=== PATIENT | female | born 1995 | race Caucasian/White ===

== ENCOUNTER 2016-06-29 18:13 | Emergency (ER) | payer OTHER ==
[~2016-06-29] VITALS: Ht 154.9 cm; Wt 46.7 kg
[~2016-06-29 18:13] MED LIST: ACETAMINOPHEN500 MG PO; CIPRO500 MG PO; CONCERTA36 MG PO; FOCALIN5 MG PO; KEPPRA500 MG PO; KEPPRA750 MG PO; LEVEMIR100 UNIT/2 SC; MOTRIN600 MG PO; NEUTRA-PHOS,1 PACKET PO; NOVOLIN N100 UNITS/; NOVOLOG 10100 UNITS/; NOVOLOG 10100 UNITS/ SC; TOPAMAX25 MG PO; ZOFRAN ODT4 MG PO; ZOFRAN4 MG PO
[2016-06-29 18:37] LABS: POINT-OF-CARE METER ID UU13113778; POINT-OF-CARE USER ID NUTJLF39
[2016-06-29 19:09] LABS: HEMATOCRIT 48.9 % (36.0-46.0); MCH 29.4 PG (29.0-34.0); MCHC 33.9 G/DL (30.0-36.0); MCV 86.7 FL (83-99); MEAN PLAT.VOLUME 9.2 uM^3 (9.5-12.4); PLATELET COUNT 384 K/uL (156-360); RBC DIS.WIDTH-CV 13.3 % (11.8-14.6); RBC DIS.WIDTH-SD 41.7 % (39-53); RED BLOOD COUNT 5.64 M/uL (3.80-5.20); WHITE BLOOD COUNT 17.3 K/uL (4.1-10.2)
[2016-06-29 19:17] LABS: CHLORIDE 113 mEq/L (99-109); POTASSIUM 4.4 mEq/L (3.7-5.4); SODIUM 140 mEq/L (136-147)
[2016-06-29 19:19] LABS: GLUCOSE 312 mg/dL (70-99)
[2016-06-29 19:20] LABS: ANION GAP 21 MEQ/L (2-14)
[2016-06-29 19:21] LABS: TOTAL BILIRUBIN 0.4 mg/dL (0.0-1.0)
[2016-06-29 19:23] LABS: ALKALINE PHOSPHATASE 109 IU/L (3-129); GFR ESTIMATE (CALCULATED) > 59 mL/min/
[2016-06-29 19:24] LABS: UREA NITROGEN (BUN) 10 mg/dL (9-23)
[2016-06-29 19:34] LABS: QUANTITATIVE HCG < 4.0 MIU/ML
[2016-06-29 21:38] LABS: VENOUS PCO2 27 mm Hg (41-51)
[2016-06-29 23:28] LABS: POINT-OF-CARE METER ID UU13113702
[2016-06-29 23:34] LABS: INFLUENZA A VIRAL ANTIGEN NEGATIVE; INFLUENZA B VIRAL ANTIGEN NEGATIVE
[2016-06-30 00:54] LABS: POINT-OF-CARE METER ID UU13113702
[2016-06-30 01:48] LABS: POINT-OF-CARE METER ID UU13113702
[2016-06-30 02:31] LABS: ADD MIUA? YES; BILIRUBIN NEGATIVE; BLOOD SMALL; COLOR STRAW ((YELLOW)); GLUCOSE (STRIP) >=500; KETONES 80; LEUKOCYTES NEGATIVE; NITRITE NEGATIVE; PROTEIN (STRIP) 100; SPECIFIC GRAVITY 1.012 (1.000-1.030); UROBILINOGEN 0.2 MG/DL (0.2-1.0)
[2016-06-30 02:34] LABS: BACTERIA RARE /HPF; EPITHELIAL CELLS RARE /HPF; MUCUS TRACE /LPF; RED BLOOD CELLS 0-5 /HPF (0-5); UCUL ADDED? NO; WHITE BLOOD CELLS 0-5 /HPF (0-5)
[2016-06-30 03:04] LABS: POINT-OF-CARE METER ID UU13113702
[2016-06-30 03:26] VITALS: BP 110/82
[2016-06-30 03:30] LABS: POINT-OF-CARE METER ID UU13113702
== END 2016-06-30 03:30 | disposition short-term general hospital (02) ==
LOC: EME 18:13
PROVIDERS: Emergency Medicine; Physician Assistant
DX: E13.10 Other specified diabetes mellitus with ketoacidosis without coma (principal); R11.2 Nausea with vomiting, unspecified; M54.9 Dorsalgia, unspecified; Z79.4 Long term (current) use of insulin
CPT/HCPCS: 71020; 80053; 81003; 82010; 82803; 82948; 83605; 84702; 85027; 87502; 99281; 99285; J1815; J2405; J3010; J7030; J7050; J7070

== ENCOUNTER 2016-11-19 21:53 | Inpatient (IN) | payer OTHER ==
[~2016-11-19] VITALS: Ht 154.9 cm; Wt 53.4 kg
[2016-11-19 22:53] LABS: HEMATOCRIT 44.9 % (36.0-46.0); MCH 29.4 PG (29.0-34.0); MCHC 33.9 G/DL (30.0-36.0); MCV 86.8 FL (83-99); PLATELET COUNT 448 K/uL (156-360); RBC DIS.WIDTH-CV 13.2 % (11.8-14.6); RBC DIS.WIDTH-SD 41.8 % (39-53); RED BLOOD COUNT 5.17 M/uL (3.80-5.20); WHITE BLOOD COUNT 8.8 K/uL (4.1-10.2)
[2016-11-19 22:54] LABS: ADD MIUA? YES; BILIRUBIN NEGATIVE; BLOOD NEGATIVE; COLOR YELLOW ((YELLOW)); GLUCOSE (STRIP) >=500; KETONES 80; LEUKOCYTES MODERATE; NITRITE NEGATIVE; PROTEIN (STRIP) NEGATIVE; SPECIFIC GRAVITY 1.035 (1.000-1.030); UROBILINOGEN 0.2 MG/DL (0.2-1.0)
[2016-11-19 23:03] LABS: CHLORIDE 102 mEq/L (99-109); POTASSIUM 4.1 mEq/L (3.7-5.4); SODIUM 132 mEq/L (136-147)
[2016-11-19 23:07] LABS: ANION GAP 19 MEQ/L (2-14); TOTAL BILIRUBIN 0.2 mg/dL (0.0-1.0)
[2016-11-19 23:09] LABS: ALKALINE PHOSPHATASE 114 IU/L (3-129); GFR ESTIMATE (CALCULATED) > 59 mL/min/
[2016-11-19 23:10] LABS: GLUCOSE 483 mg/dL (70-99); UREA NITROGEN (BUN) 8 mg/dL (9-23)
[2016-11-19 23:15] LABS: BACTERIA RARE /HPF; EPITHELIAL CELLS 1+ /HPF; MUCUS TRACE /LPF; RED BLOOD CELLS 15-20 /HPF (0-5); UCUL ADDED? NO; WHITE BLOOD CELLS 30-40 /HPF (0-5)
[2016-11-19 23:18] LABS: QUANTITATIVE HCG < 4.0 MIU/ML
[2016-11-19 23:38] LABS: CARBON DIOXIDE (BICARBONATE) 11.6 MEQ/L (20-31)
[2016-11-20] VITALS (13 sets, daily range): BP systolic 98–108; BP diastolic 59–79
[2016-11-20 00:25] LABS: CHLORIDE 100 mEq/L (99-109); POTASSIUM 4.6 mEq/L (3.7-5.4); SODIUM 127 mEq/L (136-147)
[2016-11-20 00:29] LABS: ANION GAP 18 MEQ/L (2-14)
[2016-11-20 00:31] LABS: GFR ESTIMATE (CALCULATED) > 59 mL/min/
[2016-11-20 00:32] LABS: GLUCOSE 493 mg/dL (70-99); UREA NITROGEN (BUN) 8 mg/dL (9-23)
[2016-11-20 01:21] LABS: POINT-OF-CARE METER ID UU13113747
[2016-11-20 02:55] LABS: METH RESISTANT S AUREUS PCR NEGATIVE (NEGATIVE)
[2016-11-20 03:11] LABS: PROBE CHECK PASS; SPECIMEN PROCESSING CONTROL PASS
[2016-11-20 04:31] LABS: CHLORIDE 110 mEq/L (99-109); SODIUM 133 mEq/L (136-147)
[2016-11-20 04:32] LABS: POTASSIUM 3.1 mEq/L (3.7-5.4)
[2016-11-20 04:33] LABS: GLUCOSE 277 mg/dL (70-99)
[2016-11-20 04:34] LABS: ANION GAP 14 MEQ/L (2-14)
[2016-11-20 04:36] LABS: GFR ESTIMATE (CALCULATED) > 59 mL/min/
[2016-11-20 04:37] LABS: UREA NITROGEN (BUN) 7 mg/dL (9-23)
[2016-11-20 06:23] LABS: HEMATOCRIT 36.9 % (36.0-46.0); MCH 29.3 PG (29.0-34.0); MCHC 33.9 G/DL (30.0-36.0); MCV 86.6 FL (83-99); MEAN PLAT.VOLUME 9.1 uM^3 (9.5-12.4); PLATELET COUNT 369 K/uL (156-360); RBC DIS.WIDTH-CV 13.4 % (11.8-14.6); RBC DIS.WIDTH-SD 42.1 % (39-53); RED BLOOD COUNT 4.26 M/uL (3.80-5.20); WHITE BLOOD COUNT 8.7 K/uL (4.1-10.2)
[2016-11-20 06:31] LABS: ANION GAP 11 MEQ/L (2-14); CHLORIDE 112 MEQ/L (99-109); GFR ESTIMATE (CALCULATED) > 59 mL/min/; GLUCOSE 233 mg/dL (70-99); MAGNESIUM 1.6 mg/dl (1.3-2.7); POTASSIUM 3.2 MEQ/L (3.7-5.4); SAMPLE HEMOLYSIS CHECK 0; SAMPLE ICTERIC CHECK 0; SAMPLE LIPEMIA CHECK 0; SODIUM 135 MEQ/L (136-147); UREA NITROGEN (BUN) 7 mg/dL (9-23)
[2016-11-20 08:06] LABS: Estimated Average Glucose 303 mg/dL (70-123); HEMOGLOBIN A1c (GLYCOHEMOGLOB) 12.2 % HGB (Below 5.7)
[2016-11-20 08:36] LABS: ANION GAP 7 MEQ/L (2-14); CHLORIDE 117 MEQ/L (99-109); SAMPLE HEMOLYSIS CHECK 0; SAMPLE ICTERIC CHECK 0; SAMPLE LIPEMIA CHECK 0; SODIUM 139 MEQ/L (136-147)
[2016-11-20 08:39] LABS: POTASSIUM 4.4 MEQ/L (3.7-5.4)
[2016-11-20 08:42] LABS: GFR ESTIMATE (CALCULATED) > 59 mL/min/; GLUCOSE 187 mg/dL (70-99); UREA NITROGEN (BUN) 6 mg/dL (9-23)
[2016-11-20 10:51] LABS: ANION GAP 6 MEQ/L (2-14); CHLORIDE 115 MEQ/L (99-109); GFR ESTIMATE (CALCULATED) > 59 mL/min/; GLUCOSE 144 mg/dL (70-99); MAGNESIUM 1.6 mg/dl (1.3-2.7); POTASSIUM 3.8 MEQ/L (3.7-5.4); SAMPLE HEMOLYSIS CHECK 0; SAMPLE ICTERIC CHECK 0; SAMPLE LIPEMIA CHECK 0; SODIUM 137 MEQ/L (136-147); UREA NITROGEN (BUN) 6 mg/dL (9-23)
[2016-11-20 14:26] LABS: ANION GAP 7 MEQ/L (2-14); CHLORIDE 114 MEQ/L (99-109); GFR ESTIMATE (CALCULATED) > 59 mL/min/; GLUCOSE 133 mg/dL (70-99); POTASSIUM 4.2 MEQ/L (3.7-5.4); SAMPLE HEMOLYSIS CHECK 0; SAMPLE ICTERIC CHECK 0; SAMPLE LIPEMIA CHECK 0; SODIUM 136 MEQ/L (136-147); UREA NITROGEN (BUN) 5 mg/dL (9-23)
[2016-11-20 14:32] LABS: MAGNESIUM 3.3 mg/dl (1.3-2.7)
[2016-11-20 19:23] LABS: CHLORIDE 109 mEq/L (99-109); POTASSIUM 4.3 mEq/L (3.7-5.4); SODIUM 134 mEq/L (136-147)
[2016-11-20 19:24] LABS: MAGNESIUM 1.9 mg/dL (1.3-2.7)
[2016-11-20 19:26] LABS: ANION GAP 10 MEQ/L (2-14)
[2016-11-20 19:27] LABS: GLUCOSE 345 mg/dL (70-99)
[2016-11-20 19:29] LABS: GFR ESTIMATE (CALCULATED) > 59 mL/min/
[2016-11-20 19:30] LABS: UREA NITROGEN (BUN) 4 mg/dL (9-23)
[2016-11-20 21:10] LABS: POINT-OF-CARE METER ID UU13113781
[2016-11-21 00:04] VITALS: BP 108/70
[2016-11-21 00:48] LABS: CHLORIDE 106 mEq/L (99-109); POTASSIUM 4.1 mEq/L (3.7-5.4); SODIUM 134 mEq/L (136-147)
[2016-11-21 00:50] LABS: GLUCOSE 350 mg/dL (70-99)
[2016-11-21 00:51] LABS: ANION GAP 10 MEQ/L (2-14)
[2016-11-21 00:54] LABS: GFR ESTIMATE (CALCULATED) > 59 mL/min/
[2016-11-21 00:55] LABS: UREA NITROGEN (BUN) 7 mg/dL (9-23)
[2016-11-21 00:57] LABS: MAGNESIUM 1.6 mg/dL (1.3-2.7)
[2016-11-21 02:32] LABS: POINT-OF-CARE METER ID UU13113781
[2016-11-21 03:00] VITALS: BP 103/75
[2016-11-21 03:47] LABS: CHLORIDE 109 mEq/L (99-109); POTASSIUM 3.5 mEq/L (3.7-5.4); SODIUM 137 mEq/L (136-147)
[2016-11-21 03:48] LABS: MAGNESIUM 1.8 mg/dL (1.3-2.7)
[2016-11-21 03:49] LABS: GLUCOSE 215 mg/dL (70-99)
[2016-11-21 03:50] LABS: ANION GAP 7 MEQ/L (2-14)
[2016-11-21 03:53] LABS: GFR ESTIMATE (CALCULATED) > 59 mL/min/
[2016-11-21 03:54] LABS: UREA NITROGEN (BUN) 7 mg/dL (9-23)
[2016-11-21 07:31] VITALS: BP 102/68
[2016-11-21 09:25] LABS: HEMATOCRIT 40.1 % (36.0-46.0); MCH 29.7 PG (29.0-34.0); MCHC 35.2 G/DL (30.0-36.0); MCV 84.6 FL (83-99); MEAN PLAT.VOLUME 9.4 uM^3 (9.5-12.4); PLATELET COUNT 379 K/uL (156-360); RBC DIS.WIDTH-CV 13.8 % (11.8-14.6); RBC DIS.WIDTH-SD 42.6 % (39-53); RED BLOOD COUNT 4.74 M/uL (3.80-5.20); WHITE BLOOD COUNT 7.8 K/uL (4.1-10.2)
[2016-11-21 10:05] LABS: POINT-OF-CARE METER ID UU14174216
[2016-11-21 10:50] LABS: ANION GAP 13 MEQ/L (2-14); CHLORIDE 109 MEQ/L (99-109); GFR ESTIMATE (CALCULATED) > 59 mL/min/; POTASSIUM 3.9 MEQ/L (3.7-5.4); SAMPLE HEMOLYSIS CHECK 0; SAMPLE ICTERIC CHECK 0; SAMPLE LIPEMIA CHECK 0; SODIUM 143 MEQ/L (136-147); UREA NITROGEN (BUN) 6 mg/dL (9-23)
[2016-11-21 10:51] LABS: GLUCOSE 73 mg/dL (70-99); MAGNESIUM 1.9 mg/dl (1.3-2.7)
[2016-11-21 11:10] VITALS: BP 117/69
[2016-11-21 11:42] LABS: ANION GAP 8 MEQ/L (2-14); CHLORIDE 106 MEQ/L (99-109); GFR ESTIMATE (CALCULATED) > 59 mL/min/; MAGNESIUM 1.8 mg/dl (1.3-2.7); POTASSIUM 3.4 MEQ/L (3.7-5.4); SAMPLE HEMOLYSIS CHECK 0; SAMPLE ICTERIC CHECK 0; SAMPLE LIPEMIA CHECK 0; SODIUM 137 MEQ/L (136-147); UREA NITROGEN (BUN) 6 mg/dL (9-23)
[2016-11-21 11:46] LABS: GLUCOSE 274 mg/dL (70-99)
[2016-11-21 14:54] LABS: POINT-OF-CARE USER ID ENVKC36
== END 2016-11-21 16:32 | disposition home or self-care (01) | DRG 638 ==
LOC: EME 21:53 → EDOF 11-20 00:11 → 4EAST 11-20 00:11 → 4WEST 11-20 01:30 → 4EAST 11-20 01:44 → 4WEST 11-20 15:36 → 4EAST 11-20 19:50
PROVIDERS: Emergency Medicine; Internal Medicine; Internal Medicine Nephrology
DX: E10.10 Type 1 diabetes mellitus with ketoacidosis without coma (principal); N39.0 Urinary tract infection, site not specified; G80.9 Cerebral palsy, unspecified; G40.909 Epilepsy, unspecified, not intractable, without status epilepticus; G43.909 Migraine, unspecified, not intractable, without status migrainosus; M54.9 Dorsalgia, unspecified; F90.9 Attention-deficit hyperactivity disorder, unspecified type; F17.200 Nicotine dependence, unspecified, uncomplicated
CPT/HCPCS: 80048; 80048 91; 80053; 81003; 82803; 82948; 83036; 83605; 83735; 84100; 84702; 85027; 87040; 87641; 99281; 99285; J0696; J1815; J3475; J7030; J7040; J7050; J7120; S0028

== ENCOUNTER 2016-11-28 14:20 | Inpatient (IN) | payer OTHER ==
[~2016-11-28] VITALS: Ht 154.9 cm; Wt 51.0 kg
[2016-11-28 15:26] LABS: POINT-OF-CARE METER ID UU13113800
[2016-11-28 15:43] LABS: CHLORIDE 111 mEq/L (99-109); POTASSIUM 4.2 mEq/L (3.7-5.4); SODIUM 137 mEq/L (136-147)
[2016-11-28 15:44] LABS: GLUCOSE 304 mg/dL (70-99)
[2016-11-28 15:46] LABS: VENOUS PCO2 26 mm Hg (41-51)
[2016-11-28 15:48] LABS: GFR ESTIMATE (CALCULATED) > 59 mL/min/
[2016-11-28 15:49] LABS: UREA NITROGEN (BUN) 12 mg/dL (9-23)
[2016-11-28 15:57] LABS: QUANTITATIVE HCG < 4.0 MIU/ML
[2016-11-28 16:21] LABS: HEMATOCRIT 48.3 % (36.0-46.0); MCH 29.1 PG (29.0-34.0); MCHC 31.9 G/DL (30.0-36.0); MCV 91.1 FL (83-99); PLATELET COUNT 437 K/uL (156-360); RBC DIS.WIDTH-CV 13.8 % (11.8-14.6); RBC DIS.WIDTH-SD 45.6 % (39-53); WHITE BLOOD COUNT 16.2 K/uL (4.1-10.2)
[2016-11-28] MEDS ORDERED: KEPPRA750 MG PO (16:39)
[2016-11-28] MEDS ORDERED: BASAGLAR K100 UNIT/1 SC (16:39)
[2016-11-28] MEDS ORDERED: NOVOLOG PE100 UNITS/ SC (16:40)
[2016-11-28 17:15] LABS: Estimated Average Glucose 303 mg/dL (70-123); HEMOGLOBIN A1c (GLYCOHEMOGLOB) 12.2 % HGB (Below 5.7)
[2016-11-28 17:46] LABS: POINT-OF-CARE METER ID UU14100415
[2016-11-28 18:51] LABS: POINT-OF-CARE METER ID UU14100415
[2016-11-28 19:00] LABS: ADD MIUA? YES; BILIRUBIN NEGATIVE; BLOOD NEGATIVE; COLOR STRAW ((YELLOW)); GLUCOSE (STRIP) >=500; KETONES 80; LEUKOCYTES NEGATIVE; NITRITE NEGATIVE; PROTEIN (STRIP) 100; SPECIFIC GRAVITY 1.014 (1.000-1.030); UROBILINOGEN 0.2 MG/DL (0.2-1.0)
[2016-11-28 19:23] LABS: BACTERIA 1+ /HPF; EPITHELIAL CELLS 1+ /HPF; GRANULAR CASTS 0-5 /LPF; MUCUS TRACE /LPF; RED BLOOD CELLS 0-5 /HPF (0-5); WHITE BLOOD CELLS 0-5 /HPF (0-5)
[2016-11-28 19:25] VITALS: BP 117/69
[2016-11-28 19:30] VITALS: BP 117/69
[2016-11-28 19:50] LABS: POINT-OF-CARE METER ID UU13113748
[2016-11-28 20:00] VITALS: BP 106/70
[2016-11-28 20:53] LABS: CARBOXY HGB 1.7 % (0-5); METHEMOGLOBIN 1.8 % (0-1.5); PCO2 < 19 mm Hg (35-45); PO2 126 mm Hg (80-100)
[2016-11-28 20:54] LABS: COMMENTS - BLOOD GASES C+; FI02 21 %; SITE RB; pH 7.17 (7.35-7.45)
[2016-11-28 20:59] LABS: POINT-OF-CARE METER ID UU14162636
[2016-11-28 21:00] VITALS: BP 117/71
[2016-11-28 21:18] LABS: ANION GAP 18 MEQ/L (2-14); CHLORIDE 115 MEQ/L (99-109); GFR ESTIMATE (CALCULATED) > 59 mL/min/; GLUCOSE 145 mg/dL (70-99); MAGNESIUM 1.6 mg/dl (1.3-2.7); POTASSIUM 3.4 MEQ/L (3.7-5.4); SAMPLE HEMOLYSIS CHECK 0; SAMPLE ICTERIC CHECK 0; SAMPLE LIPEMIA CHECK 0; SODIUM 136 MEQ/L (136-147); UREA NITROGEN (BUN) 8 mg/dL (9-23)
[2016-11-28 21:35] LABS: METH RESISTANT S AUREUS PCR NEGATIVE (NEGATIVE)
[2016-11-28 21:58] LABS: PROBE CHECK PASS; SPECIMEN PROCESSING CONTROL PASS
[2016-11-28 22:00] VITALS: BP 128/83; BP 96/52
[2016-11-28 22:02] LABS: POINT-OF-CARE METER ID UU14162636
[2016-11-28 23:00] VITALS: BP 102/60; BP 131/82
[2016-11-28 23:03] LABS: POINT-OF-CARE METER ID UU14162636
[2016-11-29] VITALS (24 sets, daily range): BP systolic 81–139; BP diastolic 43–77
[2016-11-29 00:05] LABS: POINT-OF-CARE METER ID UU14162636
[2016-11-29 01:07] LABS: POINT-OF-CARE METER ID UU14162636
[2016-11-29 01:22] LABS: CHLORIDE 114 mEq/L (99-109); POTASSIUM 3.6 mEq/L (3.7-5.4); SODIUM 135 mEq/L (136-147)
[2016-11-29 01:25] LABS: ANION GAP 14 MEQ/L (2-14)
[2016-11-29 01:28] LABS: GFR ESTIMATE (CALCULATED) > 59 mL/min/
[2016-11-29 01:29] LABS: GLUCOSE 239 mg/dL (70-99); UREA NITROGEN (BUN) 8 mg/dL (9-23)
[2016-11-29 02:11] LABS: POINT-OF-CARE METER ID UU14174217
[2016-11-29 03:04] LABS: POINT-OF-CARE METER ID UU14174217
[2016-11-29 04:07] LABS: POINT-OF-CARE METER ID UU14174217
[2016-11-29 04:33] LABS: HEMATOCRIT 33.5 % (36.0-46.0); MCH 29.3 PG (29.0-34.0); MCHC 34.3 G/DL (30.0-36.0); MCV 85.2 FL (83-99); RBC DIS.WIDTH-CV 13.7 % (11.8-14.6); RED BLOOD COUNT 3.93 M/uL (3.80-5.20); WHITE BLOOD COUNT 8.6 K/uL (4.1-10.2)
[2016-11-29 04:38] LABS: CHLORIDE 113 mEq/L (99-109); POTASSIUM 3.1 mEq/L (3.7-5.4); SODIUM 134 mEq/L (136-147)
[2016-11-29 04:40] LABS: GLUCOSE 187 mg/dL (70-99)
[2016-11-29 04:41] LABS: ANION GAP 8 MEQ/L (2-14)
[2016-11-29 04:44] LABS: GFR ESTIMATE (CALCULATED) > 59 mL/min/
[2016-11-29 04:45] LABS: UREA NITROGEN (BUN) 7 mg/dL (9-23)
[2016-11-29 05:25] LABS: MEAN PLAT.VOLUME 8.6 uM^3 (9.5-12.4); PLAT.SUFFICIENCY ADEQUATE
[2016-11-29 05:34] LABS: POINT-OF-CARE METER ID UU14174217
[2016-11-29 06:00] LABS: PLATELET COUNT 302 K/uL (156-360)
[2016-11-29 06:17] LABS: MAGNESIUM 1.3 mg/dL (1.3-2.7)
[2016-11-29 06:20] LABS: POINT-OF-CARE METER ID UU14174217
[2016-11-29 06:44] LABS: POINT-OF-CARE METER ID UU13113748
[2016-11-29 07:45] LABS: POINT-OF-CARE METER ID UU13113748
[2016-11-29 08:52] LABS: POINT-OF-CARE METER ID UU13113748
[2016-11-29 09:01] LABS: ANION GAP 9 MEQ/L (2-14); CHLORIDE 115 MEQ/L (99-109); GFR ESTIMATE (CALCULATED) > 59 mL/min/; GLUCOSE 179 mg/dL (70-99); SAMPLE HEMOLYSIS CHECK 0; SAMPLE ICTERIC CHECK 0; SAMPLE LIPEMIA CHECK 0; SODIUM 138 MEQ/L (136-147); UREA NITROGEN (BUN) 6 mg/dL (9-23)
[2016-11-29 09:02] LABS: POTASSIUM 3.9 MEQ/L (3.7-5.4)
[2016-11-29 10:01] LABS: POINT-OF-CARE METER ID UU13113748
[2016-11-29 11:16] LABS: POINT-OF-CARE METER ID UU13113748
[2016-11-29 12:17] LABS: POINT-OF-CARE METER ID UU13113748
[2016-11-29 12:19] LABS: ANION GAP 6 MEQ/L (2-14); CHLORIDE 115 MEQ/L (99-109); GFR ESTIMATE (CALCULATED) > 59 mL/min/; GLUCOSE 171 mg/dL (70-99); POTASSIUM 3.4 MEQ/L (3.7-5.4); SAMPLE HEMOLYSIS CHECK 0; SAMPLE ICTERIC CHECK 0; SAMPLE LIPEMIA CHECK 0; SODIUM 138 MEQ/L (136-147); UREA NITROGEN (BUN) 5 mg/dL (9-23)
[2016-11-29 13:16] LABS: POINT-OF-CARE METER ID UU14174217
[2016-11-29 16:34] LABS: ANION GAP 13 MEQ/L (2-14); CHLORIDE 112 MEQ/L (99-109); GFR ESTIMATE (CALCULATED) > 59 mL/min/; GLUCOSE 226 mg/dL (70-99); POTASSIUM 3.7 MEQ/L (3.7-5.4); SAMPLE HEMOLYSIS CHECK 0; SAMPLE ICTERIC CHECK 0; SAMPLE LIPEMIA CHECK 0; SODIUM 138 MEQ/L (136-147); UREA NITROGEN (BUN) 4 mg/dL (9-23)
[2016-11-29 17:18] LABS: POINT-OF-CARE METER ID UU14174217
[2016-11-29 22:21] LABS: POINT-OF-CARE METER ID UU13113748
[2016-11-29 22:23] LABS: ANION GAP 10 MEQ/L (2-14); CHLORIDE 106 MEQ/L (99-109); GFR ESTIMATE (CALCULATED) > 59 mL/min/; GLUCOSE 253 mg/dL (70-99); POTASSIUM 3.6 MEQ/L (3.7-5.4); SAMPLE HEMOLYSIS CHECK 0; SAMPLE ICTERIC CHECK 0; SAMPLE LIPEMIA CHECK 1; SODIUM 133 MEQ/L (136-147); UREA NITROGEN (BUN) 6 mg/dL (9-23)
[2016-11-30] VITALS (13 sets, daily range): BP systolic 94–122; BP diastolic 51–76
[2016-11-30 00:04] LABS: CHLORIDE 108 mEq/L (99-109); POTASSIUM 3.3 mEq/L (3.7-5.4); SODIUM 135 mEq/L (136-147)
[2016-11-30 00:06] LABS: GLUCOSE 194 mg/dL (70-99)
[2016-11-30 00:07] LABS: ANION GAP 11 MEQ/L (2-14)
[2016-11-30 00:10] LABS: GFR ESTIMATE (CALCULATED) > 59 mL/min/
[2016-11-30 00:11] LABS: UREA NITROGEN (BUN) 7 mg/dL (9-23)
[2016-11-30 07:12] LABS: SAMPLE HEMOLYSIS CHECK 0; SAMPLE ICTERIC CHECK 0; SAMPLE LIPEMIA CHECK 0
[2016-11-30 08:52] LABS: ANION GAP 9 MEQ/L (2-14); CHLORIDE 110 MEQ/L (99-109); POTASSIUM 3.2 MEQ/L (3.7-5.4); SODIUM 140 MEQ/L (136-147)
[2016-11-30 08:57] LABS: GFR ESTIMATE (CALCULATED) > 59 mL/min/; GLUCOSE 132 mg/dL (70-99); UREA NITROGEN (BUN) 7 mg/dL (9-23)
[2016-11-30 09:11] LABS: POINT-OF-CARE METER ID UU13113731
[2016-11-30 12:02] LABS: POINT-OF-CARE METER ID UU13113748
[2016-11-30 16:35] LABS: ANION GAP 12 MEQ/L (2-14); CHLORIDE 108 MEQ/L (99-109); GFR ESTIMATE (CALCULATED) > 59 mL/min/; POTASSIUM 3.5 MEQ/L (3.7-5.4); SAMPLE HEMOLYSIS CHECK 1; SAMPLE ICTERIC CHECK 0; SAMPLE LIPEMIA CHECK 0; SODIUM 140 MEQ/L (136-147); UREA NITROGEN (BUN) 6 mg/dL (9-23)
[2016-11-30 16:37] LABS: GLUCOSE 263 mg/dL (70-99)
[2016-11-30 16:40] LABS: POINT-OF-CARE METER ID UU14208753
[2016-11-30 21:18] LABS: POINT-OF-CARE METER ID UU14208753
[2016-11-30 22:55] LABS: ANION GAP 9 MEQ/L (2-14); CHLORIDE 109 MEQ/L (99-109); GFR ESTIMATE (CALCULATED) > 59 mL/min/; GLUCOSE 197 mg/dL (70-99); POTASSIUM 3.7 MEQ/L (3.7-5.4); SAMPLE HEMOLYSIS CHECK 0; SAMPLE ICTERIC CHECK 0; SAMPLE LIPEMIA CHECK 1; SODIUM 142 MEQ/L (136-147); UREA NITROGEN (BUN) 6 mg/dL (9-23)
[2016-12-01 00:41] VITALS: BP 100/65
[2016-12-01 08:03] VITALS: BP 108/64
== END 2016-12-01 13:20 | disposition home or self-care (01) | DRG 639 ==
LOC: EME 14:20 → EDOF 18:13 → 4WEST 18:13 → EDOF 18:53 → 4WEST 19:21 → 3EAST 11-30 12:49
PROVIDERS: Internal Medicine; Internal Medicine Nephrology; Internal Medicine Pulmonary Disease; Obstetrics & Gynecology; Physician Assistant
DX: E10.10 Type 1 diabetes mellitus with ketoacidosis without coma (principal); R19.7 Diarrhea, unspecified; E86.1 Hypovolemia; E87.6 Hypokalemia; D72.829 Elevated white blood cell count, unspecified; R56.9 Unspecified convulsions; G80.9 Cerebral palsy, unspecified; R00.0 Tachycardia, unspecified; F17.200 Nicotine dependence, unspecified, uncomplicated; E86.0 Dehydration; F90.9 Attention-deficit hyperactivity disorder, unspecified type; Z79.4 Long term (current) use of insulin
CPT/HCPCS: 36600; 71020; 80048; 80048 91; 81003; 82010; 82803; 82948; 83036; 83605; 83735; 84100; 84702; 85027; 87086; 87641; 99281; 99285; J1815; J2405; J3475; J7030; J7050; J7120; S0028

== ENCOUNTER 2016-12-10 19:32 | Emergency (ER) | payer OTHER ==
[~2016-12-10] VITALS: Ht 154.9 cm; Wt 49.5 kg
[~2016-12-10 19:32] MED LIST changes: +BASAGLAR K100 UNIT/1 SC; +NOVOLOG PE100 UNITS/ SC
[2016-12-10 20:53] LABS: POINT-OF-CARE METER ID UU13113800
[2016-12-10 20:57] LABS: HEMATOCRIT 39.8 % (36.0-46.0); MCH 29.6 PG (29.0-34.0); MCHC 33.7 G/DL (30.0-36.0); MCV 87.9 FL (83-99); MEAN PLAT.VOLUME 8.9 uM^3 (9.5-12.4); PLATELET COUNT 331 K/uL (156-360); RBC DIS.WIDTH-CV 13.3 % (11.8-14.6); RBC DIS.WIDTH-SD 43.2 % (39-53); RED BLOOD COUNT 4.53 M/uL (3.80-5.20); WHITE BLOOD COUNT 11.3 K/uL (4.1-10.2)
[2016-12-10 21:05] LABS: CHLORIDE 102 mEq/L (99-109); POTASSIUM 4.1 mEq/L (3.7-5.4); SODIUM 136 mEq/L (136-147)
[2016-12-10 21:08] LABS: GLUCOSE 293 mg/dL (70-99)
[2016-12-10 21:09] LABS: ANION GAP 13 MEQ/L (2-14)
[2016-12-10 21:10] LABS: TOTAL BILIRUBIN 0.4 mg/dL (0.0-1.0)
[2016-12-10 21:11] LABS: ALKALINE PHOSPHATASE 88 IU/L (3-129); GFR ESTIMATE (CALCULATED) > 59 mL/min/
[2016-12-10 21:12] LABS: UREA NITROGEN (BUN) 10 mg/dL (9-23)
[2016-12-10 21:20] LABS: QUANTITATIVE HCG < 4.0 MIU/ML
[2016-12-10 21:23] LABS: ADD MIUA? YES; BILIRUBIN NEGATIVE; BLOOD NEGATIVE; COLOR YELLOW ((YELLOW)); GLUCOSE (STRIP) >=500; KETONES 80; LEUKOCYTES MODERATE; NITRITE NEGATIVE; PROTEIN (STRIP) 30; UROBILINOGEN 0.2 MG/DL (0.2-1.0)
[2016-12-10 21:44] LABS: BACTERIA 2+ /HPF; CASTS NONE SEEN /LPF; CRYSTALS NONE SEEN; EPITHELIAL CELLS 2+ /HPF; MUCUS NONE SEEN /LPF; RED BLOOD CELLS 0-5 /HPF (0-5); UCUL ADDED? YES; WHITE BLOOD CELLS 30-40 /HPF (0-5)
[2016-12-10] MEDS ORDERED: KEFLEX500 MG PO (21:51)
[2016-12-10] MEDS ORDERED: MOTRIN800 MG PO (21:57)
[2016-12-10 22:34] LABS: POINT-OF-CARE METER ID UU13113800
[2016-12-10 22:35] VITALS: BP 126/63
== END 2016-12-10 22:26 | disposition home or self-care (01) ==
LOC: EME 19:32 → RME 19:32
PROVIDERS: Nurse Practitioner Family
DX: G40.909 Epilepsy, unspecified, not intractable, without status epilepticus (principal); N39.0 Urinary tract infection, site not specified; E11.65 Type 2 diabetes mellitus with hyperglycemia; R51 Headache; G80.9 Cerebral palsy, unspecified; N19 Unspecified kidney failure; F17.200 Nicotine dependence, unspecified, uncomplicated; F90.9 Attention-deficit hyperactivity disorder, unspecified type; Z79.4 Long term (current) use of insulin
CPT/HCPCS: 70450; 80053; 81003; 82948; 84702; 85027; 87086; 99281; 99284

== ENCOUNTER 2017-01-26 14:16 | Inpatient (IN) | payer OTHER ==
[~2017-01-26] VITALS: Ht 154.9 cm; Wt 54.4 kg
[~2017-01-26 14:16] MED LIST changes: +KEFLEX500 MG PO; +MOTRIN800 MG PO
[2017-01-26 15:00] LABS: EOSINOPHIL (%) 2.1 % (0-5); EOSINOPHIL COUNT 0.1 K/uL (0-0.3); HEMATOCRIT 47.3 % (36.0-46.0); IMMATURE GRANULOCYTE (%) 0.8 % (0.0-0.7); INSTRUMENT ABS NEUTROPHIL CT 2.2 K/uL; MCH 29.8 PG (29.0-34.0); MCHC 31.9 G/DL (30.0-36.0); MCV 93.3 FL (83-99); MEAN PLAT.VOLUME 9.3 uM^3 (9.5-12.4); MONOCYTE (%) 9.1 % (3-12); MONOCYTE COUNT 0.3 K/uL (0-0.8); NEUTROPHIL (%) 59.6 % (45-76); NEUTROPHIL COUNT 2.2 K/uL (1.8-6.4); PLATELET COUNT 254 K/uL (156-360); RBC DIS.WIDTH-CV 13.2 % (11.8-14.6); RBC DIS.WIDTH-SD 45.2 % (39-53); RED BLOOD COUNT 5.07 M/uL (3.80-5.20); WHITE BLOOD COUNT 3.7 K/uL (4.1-10.2)
[2017-01-26 15:11] LABS: CHLORIDE 97 mEq/L (99-109); POTASSIUM 4.8 mEq/L (3.7-5.4); SODIUM 128 mEq/L (136-147)
[2017-01-26 15:14] LABS: ANION GAP 21 MEQ/L (2-14)
[2017-01-26 15:15] LABS: TOTAL BILIRUBIN 0.3 mg/dL (0.0-1.0)
[2017-01-26 15:17] LABS: ALKALINE PHOSPHATASE 105 IU/L (3-129); GFR ESTIMATE (CALCULATED) > 59 mL/min/
[2017-01-26 15:18] LABS: UREA NITROGEN (BUN) 8 mg/dL (9-23)
[2017-01-26 15:26] LABS: QUANTITATIVE HCG < 4.0 MIU/ML
[2017-01-26 15:30] LABS: GLUCOSE 711 mg/dL (70-99)
[2017-01-26 16:30] LABS: ADD MIUA? YES; BILIRUBIN NEGATIVE; BLOOD NEGATIVE; COLOR YELLOW ((YELLOW)); GLUCOSE (STRIP) >=500; KETONES 80; LEUKOCYTES NEGATIVE; NITRITE NEGATIVE; PROTEIN (STRIP) NEGATIVE; SPECIFIC GRAVITY 1.028 (1.000-1.030); UROBILINOGEN 0.2 MG/DL (0.2-1.0)
[2017-01-26 16:41] LABS: BACTERIA 2+ /HPF; EPITHELIAL CELLS 2+ /HPF; MUCUS NONE SEEN /LPF; RED BLOOD CELLS 0-5 /HPF (0-5); WHITE BLOOD CELLS 0-5 /HPF (0-5)
[2017-01-26 17:15] LABS: POINT-OF-CARE METER ID UU14100415
[2017-01-26] MEDS ORDERED: NOVOLOG PE100 UNITS/ SC (17:57)
[2017-01-26] MEDS ORDERED: IBUPROFEN800 MG PO (17:58)
[2017-01-26 18:14] LABS: Estimated Average Glucose 292 mg/dL (70-123); HEMOGLOBIN A1c (GLYCOHEMOGLOB) 11.8 % HGB (Below 5.7)
[2017-01-26 18:19] LABS: POINT-OF-CARE METER ID UU14100415
[2017-01-26 19:23] LABS: POINT-OF-CARE METER ID UU13113747
[2017-01-26 20:04] LABS: POINT-OF-CARE METER ID UU13113747
[2017-01-26 21:00] VITALS: BP 115/79
[2017-01-26 21:10] LABS: ANION GAP 11 MEQ/L (2-14); CHLORIDE 107 MEQ/L (99-109); SAMPLE HEMOLYSIS CHECK 0; SAMPLE ICTERIC CHECK 0; SAMPLE LIPEMIA CHECK 0; SODIUM 133 MEQ/L (136-147)
[2017-01-26 21:14] LABS: POINT-OF-CARE METER ID UU13113748
[2017-01-26 21:16] LABS: UREA NITROGEN (BUN) 5 mg/dL (9-23)
[2017-01-26 21:20] LABS: GFR ESTIMATE (CALCULATED) > 59 mL/min/; GLUCOSE 184 mg/dL (70-99); POTASSIUM 3.4 MEQ/L (3.7-5.4)
[2017-01-26 22:00] VITALS: BP 120/78
[2017-01-26 22:05] LABS: POINT-OF-CARE METER ID UU13113748
[2017-01-26 22:09] LABS: METH RESISTANT S AUREUS PCR NEGATIVE (NEGATIVE)
[2017-01-26 22:25] VITALS: BP 128/78
[2017-01-26 22:28] LABS: PROBE CHECK PASS; SPECIMEN PROCESSING CONTROL PASS
[2017-01-26 23:00] VITALS: BP 105/70
[2017-01-26 23:03] LABS: POINT-OF-CARE METER ID UU13113748
[2017-01-27] VITALS (18 sets, daily range): BP systolic 89–122; BP diastolic 53–89
[2017-01-27 00:09] LABS: POINT-OF-CARE METER ID UU13113748
[2017-01-27 00:45] LABS: POTASSIUM 3.8 mEq/L (3.7-5.4); SODIUM 135 mEq/L (136-147)
[2017-01-27 00:47] LABS: CHLORIDE 109 mEq/L (99-109); GLUCOSE 228 mg/dL (70-99)
[2017-01-27 00:49] LABS: ANION GAP 11 MEQ/L (2-14)
[2017-01-27 00:51] LABS: GFR ESTIMATE (CALCULATED) > 59 mL/min/
[2017-01-27 00:52] LABS: UREA NITROGEN (BUN) 5 mg/dL (9-23)
[2017-01-27 01:21] LABS: POINT-OF-CARE METER ID UU13113748
[2017-01-27 02:09] LABS: POINT-OF-CARE METER ID UU13113748
[2017-01-27 03:20] LABS: POINT-OF-CARE METER ID UU13113748
[2017-01-27 04:10] LABS: POINT-OF-CARE METER ID UU13113748
[2017-01-27 05:07] LABS: POINT-OF-CARE METER ID UU13113748
[2017-01-27 06:05] LABS: POINT-OF-CARE METER ID UU13113748
[2017-01-27 06:31] LABS: INTER. NORMALIZED RATIO 0.9; PROTHROMBIN TIME 10.1 SEC (10.2-12.9)
[2017-01-27 06:37] LABS: HEMATOCRIT 37.3 % (36.0-46.0); MCH 29.5 PG (29.0-34.0); MCHC 33.2 G/DL (30.0-36.0); MEAN PLAT.VOLUME 9.1 uM^3 (9.5-12.4); PLATELET COUNT 260 K/uL (156-360); RBC DIS.WIDTH-CV 12.9 % (11.8-14.6); RBC DIS.WIDTH-SD 42.3 % (39-53); WHITE BLOOD COUNT 6.7 K/uL (4.1-10.2)
[2017-01-27 06:42] LABS: MCV 88.8 FL (83-99)
[2017-01-27 06:53] LABS: ANION GAP 7 MEQ/L (2-14); CHLORIDE 110 MEQ/L (99-109); POTASSIUM 3.9 MEQ/L (3.7-5.4); SAMPLE HEMOLYSIS CHECK 0; SAMPLE ICTERIC CHECK 0; SAMPLE LIPEMIA CHECK 0; SODIUM 136 MEQ/L (136-147); TOTAL BILIRUBIN 0.3 MG/DL (0.0-1.0)
[2017-01-27 06:59] LABS: ALKALINE PHOSPHATASE 63 IU/L (3-129); GFR ESTIMATE (CALCULATED) > 59 mL/min/; GLUCOSE 154 mg/dL (70-99); UREA NITROGEN (BUN) 6 mg/dL (9-23)
[2017-01-27 07:02] LABS: POINT-OF-CARE METER ID UU13113748
[2017-01-27 08:05] LABS: POINT-OF-CARE METER ID UU13113748
[2017-01-27 08:37] LABS: ANION GAP 8 MEQ/L (2-14); CHLORIDE 109 MEQ/L (99-109); POTASSIUM 3.7 MEQ/L (3.7-5.4); SAMPLE HEMOLYSIS CHECK 0; SAMPLE ICTERIC CHECK 0; SAMPLE LIPEMIA CHECK 0; SODIUM 138 MEQ/L (136-147)
[2017-01-27 08:43] LABS: GFR ESTIMATE (CALCULATED) > 59 mL/min/; GLUCOSE 168 mg/dL (70-99); UREA NITROGEN (BUN) 6 mg/dL (9-23)
[2017-01-27 09:36] LABS: POINT-OF-CARE METER ID UU13113748
[2017-01-27 10:50] LABS: POINT-OF-CARE METER ID UU13113748
[2017-01-27 12:01] LABS: POINT-OF-CARE METER ID UU13113748
[2017-01-27 12:50] LABS: POINT-OF-CARE METER ID UU13113748
[2017-01-27 14:04] LABS: ANION GAP 7 MEQ/L (2-14); CHLORIDE 104 MEQ/L (99-109); POTASSIUM 4.2 MEQ/L (3.7-5.4); SAMPLE HEMOLYSIS CHECK 1; SAMPLE ICTERIC CHECK 0; SAMPLE LIPEMIA CHECK 2; SODIUM 133 MEQ/L (136-147)
[2017-01-27 14:10] LABS: GFR ESTIMATE (CALCULATED) > 59 mL/min/; UREA NITROGEN (BUN) 8 mg/dL (9-23)
[2017-01-27 14:11] LABS: GLUCOSE 340 mg/dL (70-99)
[2017-01-27 14:30] LABS: POINT-OF-CARE METER ID UU13113748
[2017-01-27 22:45] LABS: POINT-OF-CARE METER ID UU14208753
[2017-01-28 03:38] VITALS: BP 102/62
[2017-01-28 06:59] LABS: POINT-OF-CARE METER ID UU14188577
[2017-01-28 08:03] VITALS: BP 134/78
[2017-01-28 09:23] LABS: HEMATOCRIT 39.8 % (36.0-46.0); MCH 30.4 PG (29.0-34.0); MCHC 34.2 G/DL (30.0-36.0); MCV 88.8 FL (83-99); MEAN PLAT.VOLUME 9.2 uM^3 (9.5-12.4); PLATELET COUNT 235 K/uL (156-360); RBC DIS.WIDTH-CV 13.2 % (11.8-14.6); RBC DIS.WIDTH-SD 42.8 % (39-53); RED BLOOD COUNT 4.48 M/uL (3.80-5.20); WHITE BLOOD COUNT 6.3 K/uL (4.1-10.2)
[2017-01-28 09:59] LABS: ANION GAP 10 MEQ/L (2-14); CHLORIDE 104 MEQ/L (99-109); POTASSIUM 3.5 MEQ/L (3.7-5.4); SAMPLE HEMOLYSIS CHECK 0; SAMPLE ICTERIC CHECK 0; SAMPLE LIPEMIA CHECK 0; SODIUM 139 MEQ/L (136-147)
[2017-01-28 10:05] LABS: GFR ESTIMATE (CALCULATED) > 59 mL/min/; GLUCOSE 341 mg/dL (70-99); UREA NITROGEN (BUN) 10 mg/dL (9-23)
[2017-01-28 11:10] LABS: POINT-OF-CARE METER ID UU14117124
[2017-01-28 11:11] VITALS: BP 130/75
[2017-01-28 15:56] VITALS: BP 109/67
[2017-01-28 16:35] LABS: POINT-OF-CARE METER ID UU14188577
[2017-01-28 20:10] VITALS: BP 107/68
[2017-01-28 22:32] LABS: POINT-OF-CARE METER ID UU14208753
[2017-01-28 23:41] LABS: POINT-OF-CARE METER ID UU14188577
[2017-01-28 23:49] VITALS: BP 102/69
[2017-01-29] VITALS (8 sets, daily range): BP systolic 60–102; BP diastolic 54–65
[2017-01-29 05:11] LABS: POINT-OF-CARE METER ID UU14208753
[2017-01-29 05:16] LABS: EOSINOPHIL COUNT 0.1 K/uL (0-0.3); HEMATOCRIT 39.2 % (36.0-46.0); IMMATURE GRANULOCYTE (%) 0.4 % (0.0-0.7); INSTRUMENT ABS NEUTROPHIL CT 3.3 K/uL; LYMPHOCYTE COUNT 2.6 K/uL (1.0-2.8); MCH 29.4 PG (29.0-34.0); MCHC 33.4 G/DL (30.0-36.0); MCV 87.9 FL (83-99); MEAN PLAT.VOLUME 9.2 uM^3 (9.5-12.4); MONOCYTE (%) 12.4 % (3-12); MONOCYTE COUNT 0.9 K/uL (0-0.8); NEUTROPHIL (%) 47.3 % (45-76); NEUTROPHIL COUNT 3.3 K/uL (1.8-6.4); PLATELET COUNT 250 K/uL (156-360); RBC DIS.WIDTH-SD 42.3 % (39-53); RED BLOOD COUNT 4.46 M/uL (3.80-5.20)
[2017-01-29 05:41] LABS: ANION GAP 7 MEQ/L (2-14); CHLORIDE 103 MEQ/L (99-109); GFR ESTIMATE (CALCULATED) > 59 mL/min/; GLUCOSE 218 mg/dL (70-99); SAMPLE HEMOLYSIS CHECK 0; SAMPLE ICTERIC CHECK 0; SAMPLE LIPEMIA CHECK 0; SODIUM 138 MEQ/L (136-147); UREA NITROGEN (BUN) 15 mg/dL (9-23)
[2017-01-29 08:38] LABS: POINT-OF-CARE METER ID UU14188577
[2017-01-29 11:40] LABS: POINT-OF-CARE METER ID UU14188577
[2017-01-29] MEDS ORDERED: LANTUS 10100 UNITS/ SC (14:49)
[2017-01-29 16:47] LABS: POINT-OF-CARE METER ID UU14188577
[2017-01-29 21:35] LABS: POINT-OF-CARE METER ID UU14188577
[2017-01-30 06:12] LABS: EOSINOPHIL (%) 2.6 % (0-5); EOSINOPHIL COUNT 0.2 K/uL (0-0.3); IMMATURE GRANULOCYTE (%) 0.3 % (0.0-0.7); INSTRUMENT ABS NEUTROPHIL CT 3.5 K/uL; LYMPHOCYTE COUNT 2.6 K/uL (1.0-2.8); MCH 30.3 PG (29.0-34.0); MCHC 33.7 G/DL (30.0-36.0); MCV 89.8 FL (83-99); MEAN PLAT.VOLUME 9.3 uM^3 (9.5-12.4); MONOCYTE (%) 10.8 % (3-12); MONOCYTE COUNT 0.8 K/uL (0-0.8); NEUTROPHIL (%) 49.2 % (45-76); NEUTROPHIL COUNT 3.5 K/uL (1.8-6.4); PLATELET COUNT 226 K/uL (156-360); RBC DIS.WIDTH-CV 13.2 % (11.8-14.6); RBC DIS.WIDTH-SD 43.1 % (39-53); RED BLOOD COUNT 4.23 M/uL (3.80-5.20)
[2017-01-30 06:13] VITALS: BP 101/71
[2017-01-30 06:34] LABS: ANION GAP 9 MEQ/L (2-14); CHLORIDE 107 MEQ/L (99-109); GFR ESTIMATE (CALCULATED) > 59 mL/min/; GLUCOSE 125 mg/dL (70-99); POTASSIUM 3.7 MEQ/L (3.7-5.4); SAMPLE HEMOLYSIS CHECK 0; SAMPLE ICTERIC CHECK 0; SAMPLE LIPEMIA CHECK 0; SODIUM 140 MEQ/L (136-147); UREA NITROGEN (BUN) 14 mg/dL (9-23)
[2017-01-30 06:52] LABS: POINT-OF-CARE METER ID UU14117124
[2017-01-30 10:49] VITALS: BP 97/52
[2017-01-30 11:16] LABS: POINT-OF-CARE METER ID UU14117124
[2017-01-30 16:25] VITALS: BP 102/56
[2017-01-30 16:35] LABS: POINT-OF-CARE METER ID UU14117124
== END 2017-01-30 17:30 | disposition home or self-care (01) | DRG 638 ==
LOC: EME 14:16 → 3EAST 17:30 → EDOF 17:30 → ENRESERV 17:30 → 4WEST 20:33 → ENRESERV 01-27 14:20 → 4WEST 01-27 16:04 → ENRESERV 01-27 16:10 → 3EAST 01-27 17:20
PROVIDERS: Emergency Medicine; Internal Medicine; Specialist
DX: E10.10 Type 1 diabetes mellitus with ketoacidosis without coma (principal); G40.909 Epilepsy, unspecified, not intractable, without status epilepticus; G71.0 Muscular dystrophy; G80.9 Cerebral palsy, unspecified; F90.9 Attention-deficit hyperactivity disorder, unspecified type; E87.6 Hypokalemia; I10 Essential (primary) hypertension; F17.200 Nicotine dependence, unspecified, uncomplicated; Z79.4 Long term (current) use of insulin; Z91.19 Patient's noncompliance with other medical treatment and regimen; Z86.73 Personal history of transient ischemic attack (TIA), and cerebral infarction without residual deficits; Z83.3 Family history of diabetes mellitus
CPT/HCPCS: 71010; 80048; 80048 91; 80053; 81003; 82010; 82948; 83036; 83605; 84100; 84702; 84999; 85025; 85027; 85610; 87641; 99281; 99285; J1644; J1815; J2405; J7030; J7042; J7050; J7120

== ENCOUNTER 2017-03-06 10:51 | Inpatient (IN) | payer OTHER ==
[~2017-03-06] VITALS: Ht 154.9 cm; Wt 49.0 kg
[~2017-03-06 10:51] MED LIST changes: +IBUPROFEN800 MG PO; +LANTUS 10100 UNITS/ SC
[2017-03-06 11:13] LABS: POINT-OF-CARE METER ID UU13113778
[2017-03-06 11:54] LABS: ADD MIUA? YES; BILIRUBIN NEGATIVE; BLOOD NEGATIVE; COLOR YELLOW ((YELLOW)); GLUCOSE (STRIP) >=500; KETONES 80; LEUKOCYTES SMALL; NITRITE NEGATIVE; PROTEIN (STRIP) 100; SPECIFIC GRAVITY 1.031 (1.000-1.030); UROBILINOGEN 0.2 MG/DL (0.2-1.0)
[2017-03-06 11:58] LABS: EOSINOPHIL (%) 1.1 % (0-5); EOSINOPHIL COUNT 0.1 K/uL (0-0.3); HEMATOCRIT 45.4 % (36.0-46.0); IMMATURE GRANULOCYTE (%) 0.5 % (0.0-0.7); INSTRUMENT ABS NEUTROPHIL CT 5.2 K/uL; LYMPHOCYTE COUNT 1.6 K/uL (1.0-2.8); MCH 29.6 PG (29.0-34.0); MCHC 33.5 G/DL (30.0-36.0); MCV 88.3 FL (83-99); MEAN PLAT.VOLUME 9.2 uM^3 (9.5-12.4); MONOCYTE (%) 7.2 % (3-12); MONOCYTE COUNT 0.5 K/uL (0-0.8); NEUTROPHIL (%) 69.1 % (45-76); NEUTROPHIL COUNT 5.2 K/uL (1.8-6.4); PLATELET COUNT 267 K/uL (156-360); RBC DIS.WIDTH-CV 12.9 % (11.8-14.6); RBC DIS.WIDTH-SD 41.7 % (39-53); RED BLOOD COUNT 5.14 M/uL (3.80-5.20); WHITE BLOOD COUNT 7.5 K/uL (4.1-10.2)
[2017-03-06 11:59] LABS: CARBON DIOXIDE (BICARBONATE) 9.7 MEQ/L (20-31)
[2017-03-06 12:10] LABS: CHLORIDE 113 mEq/L (99-109); POTASSIUM 3.5 mEq/L (3.7-5.4); SODIUM 136 mEq/L (136-147)
[2017-03-06 12:12] LABS: GLUCOSE 216 mg/dL (70-99)
[2017-03-06 12:13] LABS: ANION GAP 16 MEQ/L (2-14)
[2017-03-06 12:16] LABS: GFR ESTIMATE (CALCULATED) > 59 mL/min/
[2017-03-06 12:17] LABS: UREA NITROGEN (BUN) 13 mg/dL (9-23)
[2017-03-06 12:18] LABS: BACTERIA RARE /HPF; EPITHELIAL CELLS 1+ /HPF; MUCUS TRACE /LPF; RED BLOOD CELLS 0-5 /HPF (0-5); UNCLASSIFIED CASTS 0-5 /LPF
[2017-03-06 12:29] LABS: QUANTITATIVE HCG < 4.0 MIU/ML
[2017-03-06 17:00] LABS: CHLORIDE 114 mEq/L (99-109)
[2017-03-06 17:01] LABS: POTASSIUM 3.3 mEq/L (3.7-5.4); SODIUM 136 mEq/L (136-147)
[2017-03-06 17:02] LABS: GLUCOSE 192 mg/dL (70-99)
[2017-03-06 17:04] LABS: ANION GAP 13 MEQ/L (2-14)
[2017-03-06 17:06] LABS: GFR ESTIMATE (CALCULATED) > 59 mL/min/
[2017-03-06 17:07] LABS: UREA NITROGEN (BUN) 9 mg/dL (9-23)
[2017-03-06 19:30] LABS: CHLORIDE 114 mEq/L (99-109); POTASSIUM 3.6 mEq/L (3.7-5.4); SODIUM 137 mEq/L (136-147)
[2017-03-06 19:33] LABS: ANION GAP 13 MEQ/L (2-14)
[2017-03-06 19:35] LABS: GFR ESTIMATE (CALCULATED) > 59 mL/min/
[2017-03-06 19:36] LABS: UREA NITROGEN (BUN) 8 mg/dL (9-23)
[2017-03-06 19:41] LABS: GLUCOSE 289 mg/dL (70-99)
[2017-03-06 22:35] LABS: TOTAL BILIRUBIN 0.3 mg/dL (0.0-1.0)
[2017-03-06 22:36] LABS: ALKALINE PHOSPHATASE 70 IU/L (3-129)
[2017-03-06 22:38] LABS: DIRECT BILIRUBIN 0.1 mg/dL (0.0-0.3)
[2017-03-07 01:40] LABS: CHLORIDE 109 mEq/L (99-109); SODIUM 133 mEq/L (136-147)
[2017-03-07 01:41] LABS: GLUCOSE 377 mg/dL (70-99)
[2017-03-07 01:43] LABS: ANION GAP 14 MEQ/L (2-14)
[2017-03-07 01:45] LABS: GFR ESTIMATE (CALCULATED) > 59 mL/min/
[2017-03-07 01:46] LABS: UREA NITROGEN (BUN) 9 mg/dL (9-23)
[2017-03-07 05:34] LABS: HEMATOCRIT 37.8 % (36.0-46.0); MCH 29.9 PG (29.0-34.0); MCHC 34.1 G/DL (30.0-36.0); MCV 87.7 FL (83-99); MEAN PLAT.VOLUME 9.2 uM^3 (9.5-12.4); PLATELET COUNT 234 K/uL (156-360); RBC DIS.WIDTH-CV 13.1 % (11.8-14.6); RBC DIS.WIDTH-SD 41.4 % (39-53); RED BLOOD COUNT 4.31 M/uL (3.80-5.20); WHITE BLOOD COUNT 6.3 K/uL (4.1-10.2)
[2017-03-07 05:55] LABS: ANION GAP 11 MEQ/L (2-14); CHLORIDE 110 MEQ/L (99-109); GFR ESTIMATE (CALCULATED) > 59 mL/min/; GLUCOSE 196 mg/dL (70-99); POTASSIUM 3.6 MEQ/L (3.7-5.4); SAMPLE HEMOLYSIS CHECK 0; SAMPLE ICTERIC CHECK 0; SAMPLE LIPEMIA CHECK 0; SODIUM 133 MEQ/L (136-147); UREA NITROGEN (BUN) 9 mg/dL (9-23)
[2017-03-07 06:16] LABS: POINT-OF-CARE METER ID UU13113781
[2017-03-07 07:27] VITALS: BP 95/57
[2017-03-07 10:12] LABS: POINT-OF-CARE METER ID UU14174216
[2017-03-07 11:17] VITALS: BP 99/65
[2017-03-07 14:47] LABS: POINT-OF-CARE METER ID UU13113781
[2017-03-07 17:56] VITALS: BP 102/69
[2017-03-07 18:03] LABS: POINT-OF-CARE METER ID UU14174216
[2017-03-07 20:10] VITALS: BP 109/75
[2017-03-07 22:04] LABS: POINT-OF-CARE METER ID UU14314088
[2017-03-08 00:01] VITALS: BP 100/70
[2017-03-08 00:10] LABS: POINT-OF-CARE METER ID UU14174216
[2017-03-08 02:35] LABS: POINT-OF-CARE METER ID UU14174216
[2017-03-08 05:45] VITALS: BP 95/55
[2017-03-08 05:57] LABS: HEMATOCRIT 35.6 % (36.0-46.0); MCH 29.6 PG (29.0-34.0); MCHC 34.6 G/DL (30.0-36.0); MCV 85.6 FL (83-99); MEAN PLAT.VOLUME 9.1 uM^3 (9.5-12.4); PLATELET COUNT 232 K/uL (156-360); RED BLOOD COUNT 4.16 M/uL (3.80-5.20); WHITE BLOOD COUNT 6.8 K/uL (4.1-10.2)
[2017-03-08 06:17] LABS: POINT-OF-CARE METER ID UU13113781
[2017-03-08 06:23] LABS: ANION GAP 9 MEQ/L (2-14); CHLORIDE 106 MEQ/L (99-109); GFR ESTIMATE (CALCULATED) > 59 mL/min/; GLUCOSE 110 mg/dL (70-99); POTASSIUM 3.1 MEQ/L (3.7-5.4); SAMPLE HEMOLYSIS CHECK 0; SAMPLE ICTERIC CHECK 0; SAMPLE LIPEMIA CHECK 0; SODIUM 140 MEQ/L (136-147); UREA NITROGEN (BUN) 10 mg/dL (9-23)
[2017-03-08] MEDS ORDERED: AMOX TR-K CLV1 EAC4 PO (07:48)
[2017-03-08] MEDS ORDERED: NOVOLOG PE100 UNITS/ SC ×2 (07:49→07:52)
[2017-03-08 11:51] LABS: POINT-OF-CARE METER ID UU13113698; POINT-OF-CARE USER ID NUTSLF44
[2017-03-08 17:03] LABS: POINT-OF-CARE METER ID UU13113781; POINT-OF-CARE USER ID NUTSLF44
== END 2017-03-08 20:50 | disposition home or self-care (01) | DRG 638 ==
LOC: EME 10:51 → EDOF 21:45 → 4EAST 21:45 → ENRESERV 21:50 → 4EAST 03-07 01:20
PROVIDERS: Emergency Medicine; Hospitalist; Internal Medicine
DX: E10.10 Type 1 diabetes mellitus with ketoacidosis without coma (principal); G40.909 Epilepsy, unspecified, not intractable, without status epilepticus; Z87.440 Personal history of urinary (tract) infections; Z79.4 Long term (current) use of insulin; G80.9 Cerebral palsy, unspecified; E86.0 Dehydration; N39.0 Urinary tract infection, site not specified; K04.7 Periapical abscess without sinus; F17.200 Nicotine dependence, unspecified, uncomplicated; Z86.73 Personal history of transient ischemic attack (TIA), and cerebral infarction without residual deficits; F90.9 Attention-deficit hyperactivity disorder, unspecified type; E87.6 Hypokalemia
CPT/HCPCS: 71010; 80048; 80048 91; 80076; 81003; 82010; 82803; 82948; 83605; 84702; 85025; 85027; 90686; 99281; 99285; J1815; J7030; J7120

== ENCOUNTER 2017-03-29 20:46 | Emergency (ER) | payer OTHER ==
[~2017-03-29] VITALS: Ht 154.9 cm; Wt 50.8 kg
[~2017-03-29 20:46] MED LIST changes: +AMOX TR-K CLV1 EAC4 PO
[2017-03-29 21:04] LABS: POINT-OF-CARE METER ID UU13113778
[2017-03-29 21:16] LABS: HEMATOCRIT 44.9 % (36.0-46.0); MCH 30.3 PG (29.0-34.0); MCHC 34.3 G/DL (30.0-36.0); MCV 88.2 FL (83-99); MEAN PLAT.VOLUME 9.1 uM^3 (9.5-12.4); PLATELET COUNT 311 K/uL (156-360); RBC DIS.WIDTH-CV 12.8 % (11.8-14.6); RBC DIS.WIDTH-SD 41.9 % (39-53); RED BLOOD COUNT 5.09 M/uL (3.80-5.20)
[2017-03-29 21:21] LABS: CHLORIDE 99 mEq/L (99-109); SODIUM 135 mEq/L (136-147)
[2017-03-29 21:25] LABS: ANION GAP 12 MEQ/L (2-14); TOTAL BILIRUBIN 0.2 mg/dL (0.0-1.0)
[2017-03-29 21:27] LABS: ALKALINE PHOSPHATASE 100 IU/L (3-129); GFR ESTIMATE (CALCULATED) > 59 mL/min/
[2017-03-29 21:28] LABS: UREA NITROGEN (BUN) 19 mg/dL (9-23)
[2017-03-29 21:36] LABS: GLUCOSE 398 mg/dL (70-99)
[2017-03-29 21:37] LABS: QUANTITATIVE HCG < 4.0 MIU/ML
[2017-03-29 21:44] LABS: ADD MIUA? YES; BILIRUBIN NEGATIVE; BLOOD NEGATIVE; COLOR YELLOW ((YELLOW)); GLUCOSE (STRIP) >=500; KETONES 80; LEUKOCYTES SMALL; NITRITE NEGATIVE; PROTEIN (STRIP) NEGATIVE; SPECIFIC GRAVITY 1.044 (1.000-1.030); UROBILINOGEN 0.2 MG/DL (0.2-1.0)
[2017-03-29 21:50] LABS: CARBON DIOXIDE (BICARBONATE) 26.1 MEQ/L (20-31)
[2017-03-29 22:16] LABS: EPITHELIAL CELLS 1+ /HPF
[2017-03-29 22:17] LABS: BACTERIA 1+ /HPF; CASTS NONE SEEN /LPF; MUCUS NONE SEEN /LPF; RED BLOOD CELLS NONE SEEN /HPF (0-5); UCUL ADDED? NO; WHITE BLOOD CELLS 0-5 /HPF (0-5)
[2017-03-29 23:15] LABS: POINT-OF-CARE METER ID UU13113800; POINT-OF-CARE USER ID NUTJLF39
[2017-03-29 23:19] VITALS: BP 118/84
== END 2017-03-29 23:19 | disposition home or self-care (01) ==
LOC: EME 20:46
PROVIDERS: Physician Assistant
DX: E11.65 Type 2 diabetes mellitus with hyperglycemia (principal); Z79.4 Long term (current) use of insulin; G80.9 Cerebral palsy, unspecified; R56.9 Unspecified convulsions; G43.909 Migraine, unspecified, not intractable, without status migrainosus; F90.9 Attention-deficit hyperactivity disorder, unspecified type; Z86.73 Personal history of transient ischemic attack (TIA), and cerebral infarction without residual deficits; F17.200 Nicotine dependence, unspecified, uncomplicated
CPT/HCPCS: 80053; 81003; 82010; 82803; 82948; 84702; 85027; 99281; 99284; J7030

== ENCOUNTER 2017-04-28 00:29 | Inpatient (IN) | payer OTHER ==
[2017-04-28] VITALS (20 sets, daily range): BP systolic 94–136; BP diastolic 50–94
[~2017-04-28] VITALS: Ht 154.9 cm; Wt 52.2 kg
[2017-04-28 00:51] LABS: POINT-OF-CARE METER ID UU13113778
[2017-04-28 01:11] LABS: HEMATOCRIT 52.2 % (36.0-46.0); MCH 30.7 PG (29.0-34.0); MCHC 32.6 G/DL (30.0-36.0); MEAN PLAT.VOLUME 9.2 uM^3 (9.5-12.4); PLATELET COUNT 337 K/uL (156-360); RBC DIS.WIDTH-CV 13.4 % (11.8-14.6); RBC DIS.WIDTH-SD 46.5 % (39-53); RED BLOOD COUNT 5.54 M/uL (3.80-5.20); WHITE BLOOD COUNT 17.3 K/uL (4.1-10.2)
[2017-04-28 01:21] LABS: CHLORIDE 110 mEq/L (99-109); SODIUM 135 mEq/L (136-147)
[2017-04-28 01:23] LABS: GLUCOSE 310 mg/dL (70-99)
[2017-04-28 01:24] LABS: ANION GAP 20 MEQ/L (2-14)
[2017-04-28 01:25] LABS: TOTAL BILIRUBIN 0.3 mg/dL (0.0-1.0)
[2017-04-28 01:26] LABS: ALKALINE PHOSPHATASE 110 IU/L (3-129)
[2017-04-28 01:27] LABS: GFR ESTIMATE (CALCULATED) > 59 mL/min/
[2017-04-28 01:28] LABS: UREA NITROGEN (BUN) 14 mg/dL (9-23)
[2017-04-28 01:36] LABS: QUANTITATIVE HCG < 4.0 MIU/ML
[2017-04-28 02:01] LABS: VENOUS PCO2 25 mm Hg (41-51)
[2017-04-28 02:08] LABS: CARBON DIOXIDE (BICARBONATE) ND MEQ/L (20-31)
[2017-04-28 02:16] LABS: MCV 94.2 FL (83-99)
[2017-04-28 03:19] LABS: POINT-OF-CARE METER ID UU13113747
[2017-04-28 04:28] LABS: POINT-OF-CARE METER ID UU14314082
[2017-04-28 05:26] LABS: METH RESISTANT S AUREUS PCR NEGATIVE (NEGATIVE)
[2017-04-28 05:38] LABS: PROBE CHECK PASS; SPECIMEN PROCESSING CONTROL PASS
[2017-04-28 05:50] LABS: POINT-OF-CARE METER ID UU14314082
[2017-04-28 07:05] LABS: POINT-OF-CARE METER ID UU14314082
[2017-04-28 07:40] LABS: POINT-OF-CARE METER ID UU14314082
[2017-04-28 08:41] LABS: POINT-OF-CARE METER ID UU14314082
[2017-04-28 09:43] LABS: POINT-OF-CARE METER ID UU14314082
[2017-04-28 10:18] LABS: GLUCOSE 147 mg/dL (70-99)
[2017-04-28 10:31] LABS: ANION GAP 18 MEQ/L (2-14); CHLORIDE 116 MEQ/L (99-109); POTASSIUM 3.2 MEQ/L (3.7-5.4); SAMPLE HEMOLYSIS CHECK 0; SAMPLE ICTERIC CHECK 0; SAMPLE LIPEMIA CHECK 0; SODIUM 137 MEQ/L (136-147); UREA NITROGEN (BUN) 12 mg/dL (9-23)
[2017-04-28 10:32] LABS: CARBON DIOXIDE (BICARBONATE) < 10.0 MEQ/L (20-31); GFR ESTIMATE (CALCULATED) > 59 mL/min/; GLUCOSE 137 mg/dL (70-99)
[2017-04-28 10:48] LABS: POINT-OF-CARE METER ID UU14314082
[2017-04-28 12:02] LABS: POINT-OF-CARE METER ID UU14314082
[2017-04-28 13:15] LABS: POINT-OF-CARE METER ID UU14314082
[2017-04-28 14:15] LABS: POINT-OF-CARE METER ID UU14314082
[2017-04-28 14:46] LABS: ANION GAP 20 MEQ/L (2-14); CHLORIDE 113 MEQ/L (99-109); GFR ESTIMATE (CALCULATED) > 59 mL/min/; GLUCOSE 185 mg/dL (70-99); POTASSIUM 2.9 MEQ/L (3.7-5.4); SAMPLE HEMOLYSIS CHECK 0; SAMPLE ICTERIC CHECK 0; SAMPLE LIPEMIA CHECK 0; SODIUM 136 MEQ/L (136-147); UREA NITROGEN (BUN) 8 mg/dL (9-23)
[2017-04-28 15:34] LABS: POINT-OF-CARE METER ID UU14162636
[2017-04-28 16:36] LABS: POINT-OF-CARE METER ID UU14162636
[2017-04-28 17:18] LABS: POINT-OF-CARE METER ID UU14162636
[2017-04-28 18:24] LABS: POINT-OF-CARE METER ID UU14314082
[2017-04-28 18:49] LABS: ANION GAP 16 MEQ/L (2-14); CHLORIDE 114 MEQ/L (99-109); GFR ESTIMATE (CALCULATED) > 59 mL/min/; GLUCOSE 200 mg/dL (70-99); POTASSIUM 2.5 MEQ/L (3.7-5.4); SAMPLE HEMOLYSIS CHECK 0; SAMPLE ICTERIC CHECK 0; SAMPLE LIPEMIA CHECK 0; SODIUM 137 MEQ/L (136-147); UREA NITROGEN (BUN) 5 mg/dL (9-23)
[2017-04-28 19:48] LABS: POINT-OF-CARE METER ID UU14162636
[2017-04-28 20:38] LABS: POINT-OF-CARE METER ID UU14162636
[2017-04-28 21:22] LABS: ANION GAP 15 MEQ/L (2-14); CHLORIDE 114 MEQ/L (99-109); GFR ESTIMATE (CALCULATED) > 59 mL/min/; GLUCOSE 177 mg/dL (70-99); POTASSIUM 2.5 MEQ/L (3.7-5.4); SAMPLE HEMOLYSIS CHECK 0; SAMPLE ICTERIC CHECK 0; SAMPLE LIPEMIA CHECK 0; SODIUM 140 MEQ/L (136-147); UREA NITROGEN (BUN) 5 mg/dL (9-23)
[2017-04-28 21:43] LABS: POINT-OF-CARE METER ID UU14162636
[2017-04-28 23:01] LABS: POINT-OF-CARE METER ID UU14162636
[2017-04-28 23:20] LABS: POINT-OF-CARE METER ID UU14174217
[2017-04-28 23:20] LABS: COLOR YELLOW ((YELLOW)); LEUKOCYTES NEGATIVE; NITRITE NEGATIVE; SPECIFIC GRAVITY 1.006 (1.000-1.030)
[2017-04-28 23:21] LABS: ADD MIUA? YES; BACTERIA 1+ /HPF; BILIRUBIN NEGATIVE; BLOOD SMALL; EPITHELIAL CELLS RARE /HPF; GLUCOSE (STRIP) >500; KETONES 80; PROTEIN (STRIP) NEGATIVE; RED BLOOD CELLS 0-5 /HPF (0-5); UROBILINOGEN 0.2 MG/DL (0.2-1.0); WHITE BLOOD CELLS 0-5 /HPF (0-5)
[2017-04-28 23:22] LABS: AMPHETAMINES QUANT VALUE 0 NG/ML; BARBITUATES QUANT VALUE 0 NG/ML; BENZODIAZEPINES QUANT VALUE 0 NG/ML; BENZODIAZEPINES, URINE SCREEN Negative (200 ng/mL); MARIJUANA QUANT VALUE 0 NG/ML; OPIATES QUANTITATIVE VALUE 0 NG/ML; PHENCYCLIDINE QUANT VALUE 0 NG/ML
[2017-04-28 23:22] LABS: MUCUS 1+ /LPF; UCUL ADDED? YES
[2017-04-29] VITALS (22 sets, daily range): BP systolic 0–113; BP diastolic 0–77
[2017-04-29 00:42] LABS: POINT-OF-CARE METER ID UU13113803
[2017-04-29 00:42] LABS: POINT-OF-CARE METER ID UU13113803
[2017-04-29 00:47] LABS: CHLORIDE 111 mEq/L (99-109); SODIUM 138 mEq/L (136-147)
[2017-04-29 00:51] LABS: ANION GAP 13 MEQ/L (2-14)
[2017-04-29 00:53] LABS: GFR ESTIMATE (CALCULATED) > 59 mL/min/
[2017-04-29 00:54] LABS: UREA NITROGEN (BUN) 4 mg/dL (9-23)
[2017-04-29 00:59] LABS: GLUCOSE 270 mg/dL (70-99)
[2017-04-29 01:06] LABS: POTASSIUM 2.4 mEq/L (3.7-5.4)
[2017-04-29 01:44] LABS: POINT-OF-CARE METER ID UU14162636; POINT-OF-CARE USER ID ENVSME70
[2017-04-29 02:47] LABS: POINT-OF-CARE METER ID UU14162636
[2017-04-29 03:54] LABS: POINT-OF-CARE METER ID UU14162636
[2017-04-29 04:51] LABS: POINT-OF-CARE METER ID UU14162636
[2017-04-29 05:38] LABS: POINT-OF-CARE METER ID UU14162636
[2017-04-29 06:57] LABS: POINT-OF-CARE METER ID UU14314083
[2017-04-29 06:59] LABS: ANION GAP 10 MEQ/L (2-14); CHLORIDE 111 MEQ/L (99-109); GFR ESTIMATE (CALCULATED) > 59 mL/min/; SAMPLE HEMOLYSIS CHECK 0; SAMPLE ICTERIC CHECK 0; SAMPLE LIPEMIA CHECK 0; SODIUM 143 MEQ/L (136-147); UREA NITROGEN (BUN) 4 mg/dL (9-23)
[2017-04-29 07:01] LABS: GLUCOSE 94 mg/dL (70-99)
[2017-04-29 07:02] LABS: POTASSIUM 2.4 MEQ/L (3.7-5.4)
[2017-04-29 07:34] LABS: POINT-OF-CARE METER ID UU14162636
[2017-04-29 08:37] LABS: POINT-OF-CARE METER ID UU14162636
[2017-04-29 09:39] LABS: Estimated Average Glucose 318 mg/dL (70-123); HEMOGLOBIN A1c (GLYCOHEMOGLOB) 12.7 % HGB (Below 5.7)
[2017-04-29 09:40] LABS: POINT-OF-CARE METER ID UU14162636
[2017-04-29 10:43] LABS: POINT-OF-CARE METER ID UU14162636
[2017-04-29 11:47] LABS: POINT-OF-CARE METER ID UU14162636
[2017-04-29 12:53] LABS: POINT-OF-CARE METER ID UU14314082
[2017-04-29 13:39] LABS: POINT-OF-CARE METER ID UU14314082
[2017-04-29 14:39] LABS: POINT-OF-CARE METER ID UU14314082
[2017-04-29 15:13] LABS: POINT-OF-CARE METER ID UU14314082
[2017-04-29 16:20] LABS: POINT-OF-CARE METER ID UU14314082
[2017-04-29 17:20] LABS: POINT-OF-CARE METER ID UU14314082
[2017-04-29 18:22] LABS: POINT-OF-CARE METER ID UU14314082
[2017-04-29 20:32] LABS: ANION GAP 11 MEQ/L (2-14); CHLORIDE 105 MEQ/L (99-109); GFR ESTIMATE (CALCULATED) > 59 mL/min/; MAGNESIUM 1.4 mg/dl (1.3-2.7); POTASSIUM 2.5 MEQ/L (3.7-5.4); SAMPLE HEMOLYSIS CHECK 0; SAMPLE ICTERIC CHECK 0; SAMPLE LIPEMIA CHECK 0; SODIUM 142 MEQ/L (136-147); UREA NITROGEN (BUN) 6 mg/dL (9-23)
[2017-04-29 20:33] LABS: GLUCOSE 229 mg/dL (70-99)
[2017-04-29 22:26] LABS: POINT-OF-CARE METER ID UU14314082
[2017-04-30] VITALS: BP 130/66
[2017-04-30 06:52] LABS: POINT-OF-CARE METER ID UU13113725
[2017-04-30 07:10] VITALS: BP 107/62
[2017-04-30 08:31] LABS: POINT-OF-CARE METER ID UU13113725
[2017-04-30 09:42] LABS: EOSINOPHIL (%) 1.6 % (0-5); EOSINOPHIL COUNT 0.1 K/uL (0-0.3); IMMATURE GRANULOCYTE (%) 0.2 % (0.0-0.7); INSTRUMENT ABS NEUTROPHIL CT 3.1 K/uL; LYMPHOCYTE COUNT 1.7 K/uL (1.0-2.8); MCH 29.6 PG (29.0-34.0); MCHC 34.7 G/DL (30.0-36.0); MONOCYTE (%) 11.4 % (3-12); MONOCYTE COUNT 0.6 K/uL (0-0.8); NEUTROPHIL (%) 55.4 % (45-76); NEUTROPHIL COUNT 3.1 K/uL (1.8-6.4); RBC DIS.WIDTH-CV 13.3 % (11.8-14.6); RBC DIS.WIDTH-SD 41.7 % (39-53); WHITE BLOOD COUNT 5.6 K/uL (4.1-10.2)
[2017-04-30 09:44] LABS: RED BLOOD COUNT 3.75 M/uL (3.80-5.20)
[2017-04-30 09:45] LABS: MCV 85.3 FL (83-99)
[2017-04-30 09:58] LABS: ANION GAP 8 MEQ/L (2-14); CHLORIDE 107 MEQ/L (99-109); GFR ESTIMATE (CALCULATED) > 59 mL/min/; GLUCOSE 224 mg/dL (70-99); MAGNESIUM 1.4 mg/dl (1.3-2.7); POTASSIUM 2.6 MEQ/L (3.7-5.4); SAMPLE HEMOLYSIS CHECK 0; SAMPLE ICTERIC CHECK 0; SAMPLE LIPEMIA CHECK 0; SODIUM 144 MEQ/L (136-147); UREA NITROGEN (BUN) 4 mg/dL (9-23)
[2017-04-30 10:28] LABS: MEAN PLAT.VOLUME 8.9 uM^3 (9.5-12.4); PLAT.SUFFICIENCY ADEQUATE
[2017-04-30 11:40] LABS: POINT-OF-CARE METER ID UU13113725
[2017-04-30 12:12] LABS: PLATELET COUNT 200 K/uL (156-360)
[2017-04-30 15:19] VITALS: BP 106/68
[2017-04-30 16:17] LABS: POINT-OF-CARE METER ID UU13113774
[2017-04-30 23:16] VITALS: BP 99/60
[2017-05-01 02:02] LABS: POINT-OF-CARE METER ID UU13113725
[2017-05-01 05:48] LABS: POINT-OF-CARE METER ID UU13113725
[2017-05-01 06:54] LABS: ANION GAP 9 MEQ/L (2-14); CHLORIDE 107 MEQ/L (99-109); GFR ESTIMATE (CALCULATED) > 59 mL/min/; GLUCOSE 331 mg/dL (70-99); POTASSIUM 3.4 MEQ/L (3.7-5.4); SAMPLE HEMOLYSIS CHECK 0; SAMPLE ICTERIC CHECK 0; SAMPLE LIPEMIA CHECK 0; SODIUM 139 MEQ/L (136-147); UREA NITROGEN (BUN) 7 mg/dL (9-23)
[2017-05-01 07:04] LABS: EOSINOPHIL (%) 3.2 % (0-5); EOSINOPHIL COUNT 0.2 K/uL (0-0.3); HEMATOCRIT 33.2 % (36.0-46.0); IMMATURE GRANULOCYTE (%) 0.8 % (0.0-0.7); INSTRUMENT ABS NEUTROPHIL CT 2.6 K/uL; MCH 30.8 PG (29.0-34.0); MCHC 34.6 G/DL (30.0-36.0); MEAN PLAT.VOLUME 9.7 uM^3 (9.5-12.4); MONOCYTE (%) 10.3 % (3-12); MONOCYTE COUNT 0.6 K/uL (0-0.8); NEUTROPHIL (%) 48.3 % (45-76); NEUTROPHIL COUNT 2.6 K/uL (1.8-6.4); PLATELET COUNT 221 K/uL (156-360); RBC DIS.WIDTH-CV 13.5 % (11.8-14.6); RBC DIS.WIDTH-SD 44.3 % (39-53); RED BLOOD COUNT 3.73 M/uL (3.80-5.20); WHITE BLOOD COUNT 5.3 K/uL (4.1-10.2)
[2017-05-01 07:39] VITALS: BP 103/68
[2017-05-01 11:38] LABS: POINT-OF-CARE METER ID UU13113725
[2017-05-01] MEDS ORDERED: BASAGLAR K100 UNIT/1 SC (12:00)
[2017-05-01 16:26] LABS: POINT-OF-CARE METER ID UU13113725
[2017-05-01 16:47] VITALS: BP 110/65
== END 2017-05-01 20:56 | disposition home or self-care (01) | DRG 639 ==
LOC: EME 00:29 → EDOF 02:38 → 4WEST 02:38 → ENRESERV 02:39 → 4WEST 03:54 → ENRESERV 04-29 21:17 → 5EAST 04-29 22:55 → ENPENDDIS 05-01 → 5EAST 05-01 20:56
PROVIDERS: Emergency Medicine; Hospitalist; Internal Medicine; Internal Medicine Critical Care Medicine; Specialist
DX: E10.10 Type 1 diabetes mellitus with ketoacidosis without coma (principal); E10.649 Type 1 diabetes mellitus with hypoglycemia without coma; E87.5 Hyperkalemia; E87.6 Hypokalemia; E83.42 Hypomagnesemia; E83.39 Other disorders of phosphorus metabolism; E86.0 Dehydration; G80.9 Cerebral palsy, unspecified; F90.9 Attention-deficit hyperactivity disorder, unspecified type; F12.10 Cannabis abuse, uncomplicated; F17.200 Nicotine dependence, unspecified, uncomplicated; G40.909 Epilepsy, unspecified, not intractable, without status epilepticus; Z86.73 Personal history of transient ischemic attack (TIA), and cerebral infarction without residual deficits; Z91.19 Patient's noncompliance with other medical treatment and regimen; Z91.14 Patient's other noncompliance with medication regimen; Z91.11 Patient's noncompliance with dietary regimen; Z79.4 Long term (current) use of insulin
CPT/HCPCS: 71010; 80048; 80048 91; 80053; 80306 90; 81003; 82010; 82803; 82947 91; 82948; 83036; 83735; 84100; 84132 91; 84702; 85025; 85027; 87040; 87086; 87641; 99281; 99285; J1650; J1815; J3010; J7030; J7040; J7050; J7070; J7120

== ENCOUNTER 2017-06-21 19:40 | Emergency (ER) | payer OTHER ==
[~2017-06-21] VITALS: Ht 162.6 cm; Wt 42.6 kg
[2017-06-21 20:31] LABS: APPEARANCE CLOUDY ((CLEAR)); BILIRUBIN NEGATIVE; BLOOD SMALL; COLOR YELLOW ((YELLOW)); GLUCOSE (STRIP) >=500; KETONES 80; LEUKOCYTES LARGE; NITRITE NEGATIVE; PROTEIN (STRIP) 100; SPECIFIC GRAVITY 1.031 (1.000-1.030); UROBILINOGEN 0.2 MG/DL (0.2-1.0)
[2017-06-21 20:46] LABS: BACTERIA 3+ /HPF; EPITHELIAL CELLS 2+ /HPF; MUCUS NONE SEEN /LPF; WHITE BLOOD CELLS 30-40 /HPF (0-5)
[2017-06-21 20:48] LABS: BASOPHIL (%) 0.5 % (0-1); BASOPHIL COUNT 0.1 K/uL (0-0.1); EOSINOPHIL (%) 0.2 % (0-5); HEMATOCRIT 55.1 % (36.0-46.0); HEMOGLOBIN 17.8 G/DL (11.9-15.5); IMMATURE GRANULOCYTE (%) 0.9 % (0.0-0.7); LYMPHOCYTE (%) 10.2 % (15-42); LYMPHOCYTE COUNT 1.2 K/uL (1.0-2.8); MCHC 32.3 G/DL (30.0-36.0); MCV 92.9 FL (83-99); MONOCYTE (%) 2.5 % (3-12); MONOCYTE COUNT 0.3 K/uL (0-0.8); NEUTROPHIL (%) 85.7 % (45-76); NEUTROPHIL COUNT 10.2 K/uL (1.8-6.4); PLATELET COUNT 318 K/uL (156-360); RBC DIS.WIDTH-CV 12.1 % (11.8-14.6); RBC DIS.WIDTH-SD 42.1 % (39-53); RED BLOOD COUNT 5.93 M/uL (3.80-5.20); WHITE BLOOD COUNT 11.9 K/uL (4.1-10.2)
[2017-06-21 20:55] LABS: CARBON DIOXIDE (BICARBONATE) 8.8 MEQ/L (20-31)
[2017-06-21 21:05] LABS: CHLORIDE 107 mEq/L (99-109); SODIUM 137 mEq/L (136-147)
[2017-06-21 21:07] LABS: GLUCOSE 381 mg/dL (70-99)
[2017-06-21 21:08] LABS: TOTAL PROTEIN 9.2 g/dL (6.4-8.3)
[2017-06-21 21:09] LABS: TOTAL BILIRUBIN 0.3 mg/dL (0.0-1.0)
[2017-06-21 21:11] LABS: ALKALINE PHOSPHATASE 132 IU/L (3-129); CREATININE 1.3 mg/dL (0.6-1.3); GFR ESTIMATE (CALCULATED) 54 mL/min/
[2017-06-21 21:12] LABS: UREA NITROGEN (BUN) 10 mg/dL (9-23)
[2017-06-21 21:13] LABS: AST (GOT) 19 IU/L (2-34)
[2017-06-21 21:14] LABS: ALT (GPT) 21 IU/L (3-49)
[2017-06-21 21:20] LABS: QUANTITATIVE HCG < 4.0 MIU/ML
[2017-06-22 00:54] LABS: CARBON DIOXIDE (BICARBONATE) 10.6 MEQ/L (20-31)
[2017-06-22 01:11] LABS: CHLORIDE 111 mEq/L (99-109); POTASSIUM 4.2 mEq/L (3.7-5.4); SODIUM 134 mEq/L (136-147)
[2017-06-22 01:14] LABS: GLUCOSE 172 mg/dL (70-99)
[2017-06-22 01:16] LABS: GFR ESTIMATE (CALCULATED) > 59 mL/min/
[2017-06-22 01:17] LABS: CREATININE 0.8 mg/dL (0.6-1.3); UREA NITROGEN (BUN) 8 mg/dL (9-23)
[2017-06-22 03:57] VITALS: BP 93/59
== END 2017-06-22 04:01 | disposition short-term general hospital (02) ==
LOC: EME → EDBD 19:40 → EME 06-22 04:01
PROVIDERS: Emergency Medicine
DX: E11.10 Type 2 diabetes mellitus with ketoacidosis without coma (principal); N39.0 Urinary tract infection, site not specified; E86.0 Dehydration; Z79.4 Long term (current) use of insulin; G80.9 Cerebral palsy, unspecified; Z86.73 Personal history of transient ischemic attack (TIA), and cerebral infarction without residual deficits; F17.200 Nicotine dependence, unspecified, uncomplicated
CPT/HCPCS: 80048; 80048 91; 80053; 81003; 82010; 82803; 82948; 84702; 85025; 87086; 99281; 99285; J0696; J1815; J2405; J7030; J7042; J7050

== ENCOUNTER 2017-06-28 13:17 | Emergency (ER) | payer OTHER ==
[~2017-06-28] VITALS: Ht 154.9 cm; Wt 50.5 kg
[2017-06-28 14:08] LABS: CARBON DIOXIDE (BICARBONATE) 25.1 MEQ/L (20-31)
[2017-06-28 14:11] LABS: CHLORIDE 101 mEq/L (99-109); POTASSIUM 3.3 mEq/L (3.7-5.4); SODIUM 133 mEq/L (136-147)
[2017-06-28 14:12] LABS: GLUCOSE 282 mg/dL (70-99)
[2017-06-28 14:16] LABS: CREATININE 0.8 mg/dL (0.6-1.3); GFR ESTIMATE (CALCULATED) > 59 mL/min/
[2017-06-28 14:17] LABS: UREA NITROGEN (BUN) 9 mg/dL (9-23)
[2017-06-28 16:08] VITALS: BP 120/79
== END 2017-06-28 16:09 | disposition home or self-care (01) ==
LOC: EME 13:17
PROVIDERS: Physician Assistant
DX: E10.65 Type 1 diabetes mellitus with hyperglycemia (principal); G40.909 Epilepsy, unspecified, not intractable, without status epilepticus; G80.9 Cerebral palsy, unspecified; F17.200 Nicotine dependence, unspecified, uncomplicated; F90.9 Attention-deficit hyperactivity disorder, unspecified type; Z79.4 Long term (current) use of insulin
CPT/HCPCS: 80048; 82803; 82948; 99281; 99284; J7120

== ENCOUNTER 2017-07-10 14:57 | Inpatient (IN) | payer OTHER ==
[~2017-07-10] VITALS: Ht 154.9 cm; Wt 48.9 kg
[2017-07-10 15:42] LABS: HEMATOCRIT 40.7 % (36.0-46.0); MCH 30.7 PG (29.0-34.0); MCHC 33.9 G/DL (30.0-36.0); MCV 90.6 FL (83-99); PLATELET COUNT 297 K/uL (156-360); RBC DIS.WIDTH-CV 12.5 % (11.8-14.6); RBC DIS.WIDTH-SD 41.2 % (39-53); WHITE BLOOD COUNT 5.7 K/uL (4.1-10.2)
[2017-07-10 15:43] LABS: HEMOGLOBIN 13.8 G/DL (11.9-15.5); RED BLOOD COUNT 4.49 M/uL (3.80-5.20)
[2017-07-10 15:47] LABS: CHLORIDE 97 mEq/L (99-109); POTASSIUM 4.8 mEq/L (3.7-5.4); SODIUM 128 mEq/L (136-147)
[2017-07-10 15:48] LABS: MAGNESIUM 1.9 mg/dL (1.3-2.7)
[2017-07-10 15:54] LABS: UREA NITROGEN (BUN) 14 mg/dL (9-23)
[2017-07-10 15:58] LABS: CREATININE 1.2 mg/dL (0.6-1.3); GFR ESTIMATE (CALCULATED) > 59 mL/min/
[2017-07-10 16:15] LABS: GLUCOSE 766 mg/dL (70-99)
[2017-07-10 17:54] LABS: CHLORIDE 103 mEq/L (99-109); POTASSIUM 4.3 mEq/L (3.7-5.4); SODIUM 131 mEq/L (136-147)
[2017-07-10] MEDS ORDERED: BASAGLAR K100 UNIT/1 SC (17:54)
[2017-07-10] MEDS ORDERED: TYLENOL EXTRA500 MG PO (17:55)
[2017-07-10] MEDS ORDERED: ADVIL200 MG PO (17:56)
[2017-07-10 17:57] LABS: GLUCOSE 631 mg/dL (70-99)
[2017-07-10 18:00] LABS: GFR ESTIMATE (CALCULATED) > 59 mL/min/
[2017-07-10 18:01] LABS: UREA NITROGEN (BUN) 12 mg/dL (9-23)
[2017-07-10 20:31] VITALS: BP 106/78
[2017-07-10 20:35] VITALS: BP 106/78
[2017-07-10 21:00] VITALS: BP 107/78
[2017-07-10 21:24] LABS: PHOSPHORUS 2.4 mg/dL (2.5-4.9); POTASSIUM 3.8 MEQ/L (3.7-5.4); SODIUM 135 MEQ/L (136-147); UREA NITROGEN (BUN) 10 mg/dL (9-23)
[2017-07-10 21:25] LABS: CHLORIDE 109 MEQ/L (99-109); CREATININE 0.5 MG/DL (0.6-1.3); GFR ESTIMATE (CALCULATED) > 59 mL/min/; GLUCOSE 264 mg/dL (70-99)
[2017-07-10 22:00] VITALS: BP 104/73
[2017-07-10 23:00] VITALS: BP 96/80
[2017-07-11] VITALS (21 sets, daily range): BP systolic 78–110; BP diastolic 55–89
[2017-07-11 00:31] LABS: CHLORIDE 109 mEq/L (99-109); POTASSIUM 3.9 mEq/L (3.7-5.4); SODIUM 134 mEq/L (136-147)
[2017-07-11 00:37] LABS: CREATININE 0.6 mg/dL (0.6-1.3); GFR ESTIMATE (CALCULATED) > 59 mL/min/
[2017-07-11 00:38] LABS: UREA NITROGEN (BUN) 9 mg/dL (9-23)
[2017-07-11 01:08] LABS: GLUCOSE 180 mg/dL (70-99)
[2017-07-11 05:15] LABS: CHLORIDE 112 mEq/L (99-109); POTASSIUM 3.9 mEq/L (3.7-5.4); SODIUM 137 mEq/L (136-147)
[2017-07-11 05:17] LABS: GLUCOSE 183 mg/dL (70-99)
[2017-07-11 05:21] LABS: CREATININE 0.6 mg/dL (0.6-1.3); GFR ESTIMATE (CALCULATED) > 59 mL/min/; PHOSPHORUS 3.1 mg/dL (2.5-4.9)
[2017-07-11 05:22] LABS: UREA NITROGEN (BUN) 7 mg/dL (9-23)
[2017-07-11 09:03] LABS: CHLORIDE 109 MEQ/L (99-109); CREATININE 0.4 MG/DL (0.6-1.3); GFR ESTIMATE (CALCULATED) > 59 mL/min/; GLUCOSE 185 mg/dL (70-99); PHOSPHORUS 2.4 mg/dL (2.5-4.9); POTASSIUM 3.4 MEQ/L (3.7-5.4); SODIUM 135 MEQ/L (136-147); UREA NITROGEN (BUN) 6 mg/dL (9-23)
[2017-07-11 12:24] LABS: CHLORIDE 105 MEQ/L (99-109); CREATININE 0.4 MG/DL (0.6-1.3); GFR ESTIMATE (CALCULATED) > 59 mL/min/; GLUCOSE 225 mg/dL (70-99); PHOSPHORUS 1.8 mg/dL (2.5-4.9); SODIUM 131 MEQ/L (136-147); UREA NITROGEN (BUN) 6 mg/dL (9-23)
[2017-07-11 12:25] LABS: POTASSIUM 4.1 MEQ/L (3.7-5.4)
[2017-07-12] VITALS (9 sets, daily range): BP systolic 82–100; BP diastolic 56–68
[2017-07-12 10:56] LABS: ALBUMIN 3.3 G/DL (3.2-4.8); ALT (GPT) 9 IU/L (3-49); AST (GOT) 9 IU/L (2-34); CHLORIDE 102 MEQ/L (99-109); CREATININE 0.5 MG/DL (0.6-1.3); GFR ESTIMATE (CALCULATED) > 59 mL/min/; POTASSIUM 4.4 MEQ/L (3.7-5.4); SODIUM 133 MEQ/L (136-147); UREA NITROGEN (BUN) 11 mg/dL (9-23)
[2017-07-12 10:57] LABS: ALKALINE PHOSPHATASE 60 IU/L (3-129); GLUCOSE 373 mg/dL (70-99); TOTAL BILIRUBIN 0.3 MG/DL (0.0-1.0); TOTAL PROTEIN 5.8 G/DL (6.4-8.3)
[2017-07-12 15:21] LABS: APPEARANCE CLEAR ((CLEAR)); BILIRUBIN NEGATIVE; BLOOD NEGATIVE; COLOR STRAW ((YELLOW)); GLUCOSE (STRIP) >=500; KETONES 5; LEUKOCYTES NEGATIVE; NITRITE NEGATIVE; PROTEIN (STRIP) NEGATIVE; SPECIFIC GRAVITY 1.024 (1.000-1.030); UCUL ADDED? NO; UROBILINOGEN 0.2 MG/DL (0.2-1.0)
== END 2017-07-12 19:55 | disposition home or self-care (01) | DRG 638 ==
LOC: EME 14:57 → 4WEST 17:30 → EDOF 17:30 → ENRESERV 17:43 → CANRESERV 17:43 → ENRESERV 17:54 → 4WEST 20:28 → ENRESERV 07-11 17:32 → CANRESERV 07-11 23:15 → 4WEST 07-12 19:55
PROVIDERS: Emergency Medicine Emergency Medical Services; Hospitalist; Internal Medicine Critical Care Medicine
DX: E10.10 Type 1 diabetes mellitus with ketoacidosis without coma (principal); E23.2 Diabetes insipidus; E86.0 Dehydration; G43.909 Migraine, unspecified, not intractable, without status migrainosus; F17.200 Nicotine dependence, unspecified, uncomplicated; F90.9 Attention-deficit hyperactivity disorder, unspecified type; G40.909 Epilepsy, unspecified, not intractable, without status epilepticus; G80.9 Cerebral palsy, unspecified; Z86.73 Personal history of transient ischemic attack (TIA), and cerebral infarction without residual deficits; Z79.4 Long term (current) use of insulin; Z91.19 Patient's noncompliance with other medical treatment and regimen
CPT/HCPCS: 36415; 80048; 80048 91; 80053; 80061; 81003; 82010; 82043; 82570; 82948; 83036; 83735; 84100; 85027; 87641; 99281; 99285; J1650; J1815; J7040; J7050; J7120

== ENCOUNTER 2017-07-28 20:21 | Inpatient (IN) | payer OTHER ==
[~2017-07-28] VITALS: Ht 154.9 cm; Wt 49.3 kg
[~2017-07-28 20:21] MED LIST changes: +ADVIL200 MG PO; +TYLENOL EXTRA500 MG PO
[2017-07-28 21:13] LABS: HEMOGLOBIN 15.4 G/DL (11.9-15.5); MCH 30.1 PG (29.0-34.0); MCHC 33.5 G/DL (30.0-36.0); PLATELET COUNT 337 K/uL (156-360); RBC DIS.WIDTH-CV 13.2 % (11.8-14.6); RBC DIS.WIDTH-SD 43.8 % (39-53); RED BLOOD COUNT 5.11 M/uL (3.80-5.20); WHITE BLOOD COUNT 7.7 K/uL (4.1-10.2)
[2017-07-28 21:32] LABS: ALBUMIN 4.4 g/dL (3.2-4.8); CHLORIDE 110 mEq/L (99-109); SODIUM 136 mEq/L (136-147)
[2017-07-28 21:34] LABS: GLUCOSE 375 mg/dL (70-99); TOTAL PROTEIN 8.2 g/dL (6.4-8.3)
[2017-07-28 21:36] LABS: TOTAL BILIRUBIN 0.3 mg/dL (0.0-1.0)
[2017-07-28 21:38] LABS: ALKALINE PHOSPHATASE 95 IU/L (3-129); CREATININE 1.1 mg/dL (0.6-1.3); GFR ESTIMATE (CALCULATED) > 59 mL/min/
[2017-07-28 21:39] LABS: AST (GOT) 9 IU/L (2-34); UREA NITROGEN (BUN) 10 mg/dL (9-23)
[2017-07-28 21:41] LABS: ALT (GPT) 14 IU/L (3-49)
[2017-07-28 21:49] LABS: QUANTITATIVE HCG < 4.0 MIU/ML
[2017-07-28 21:57] LABS: APPEARANCE SL.HAZY ((CLEAR)); BILIRUBIN NEGATIVE; BLOOD SMALL; COLOR STRAW ((YELLOW)); GLUCOSE (STRIP) >=500; KETONES 80; LEUKOCYTES MODERATE; NITRITE NEGATIVE; PROTEIN (STRIP) 30; SPECIFIC GRAVITY 1.032 (1.000-1.030); UROBILINOGEN 0.2 MG/DL (0.2-1.0)
[2017-07-28 22:10] LABS: BACTERIA RARE /HPF; EPITHELIAL CELLS 2+ /HPF; HYALINE CASTS 0-5 /LPF; MUCUS TRACE /LPF; UCUL ADDED? YES; WHITE BLOOD CELLS 20-30 /HPF (0-5)
[2017-07-28 22:49] LABS: BASE EXCESS -16.2 mEq/L (-3 to +3); CARBOXY HGB 1.6 % (0-5); METHEMOGLOBIN 1.2 % (0-1.5); PCO2 21 mm Hg (35-45); PO2 101 mm Hg (80-100); SITE LR; pH 7.24 (7.35-7.45)
[2017-07-28 22:50] LABS: COMMENTS - BLOOD GASES C+; FI02 21 %
[2017-07-29] VITALS (16 sets, daily range): BP systolic 94–120; BP diastolic 53–95
[2017-07-29] MEDS ORDERED: NOVOLOG PE100 UNITS/ SC (00:35)
[2017-07-29 01:44] LABS: CHLORIDE 113 mEq/L (99-109); POTASSIUM 3.5 mEq/L (3.7-5.4); SODIUM 136 mEq/L (136-147)
[2017-07-29 01:46] LABS: GLUCOSE 349 mg/dL (70-99)
[2017-07-29 01:50] LABS: CREATININE 0.9 mg/dL (0.6-1.3); GFR ESTIMATE (CALCULATED) > 59 mL/min/
[2017-07-29 01:51] LABS: UREA NITROGEN (BUN) 11 mg/dL (9-23)
[2017-07-29 04:56] LABS: CHLORIDE 117 mEq/L (99-109); POTASSIUM 3.3 mEq/L (3.7-5.4); SODIUM 137 mEq/L (136-147)
[2017-07-29 04:57] LABS: GLUCOSE 232 mg/dL (70-99)
[2017-07-29 05:01] LABS: CREATININE 0.7 mg/dL (0.6-1.3); GFR ESTIMATE (CALCULATED) > 59 mL/min/
[2017-07-29 05:02] LABS: UREA NITROGEN (BUN) 8 mg/dL (9-23)
[2017-07-29 05:07] LABS: PHOSPHORUS 1.6 mg/dL (2.5-4.9)
[2017-07-29 08:28] LABS: CHLORIDE 118 MEQ/L (99-109); CREATININE 0.4 MG/DL (0.6-1.3); GFR ESTIMATE (CALCULATED) > 59 mL/min/; GLUCOSE 187 mg/dL (70-99); POTASSIUM 3.7 MEQ/L (3.7-5.4); SODIUM 138 MEQ/L (136-147); UREA NITROGEN (BUN) 6 mg/dL (9-23)
[2017-07-29 08:30] LABS: PHOSPHORUS 1.3 mg/dL (2.5-4.9)
[2017-07-29 12:37] LABS: MAGNESIUM 1.3 mg/dl (1.3-2.7)
[2017-07-29 12:53] LABS: CHLORIDE 113 MEQ/L (99-109); CREATININE 0.3 MG/DL (0.6-1.3); GFR ESTIMATE (CALCULATED) > 59 mL/min/; GLUCOSE 208 mg/dL (70-99); MAGNESIUM 1.4 mg/dl (1.3-2.7); PHOSPHORUS 1.4 mg/dL (2.5-4.9); POTASSIUM 3.5 MEQ/L (3.7-5.4); SODIUM 135 MEQ/L (136-147); UREA NITROGEN (BUN) 4 mg/dL (9-23)
[2017-07-29 16:49] LABS: CHLORIDE 114 MEQ/L (99-109); CREATININE 0.4 MG/DL (0.6-1.3); GFR ESTIMATE (CALCULATED) > 59 mL/min/; GLUCOSE 234 mg/dL (70-99); PHOSPHORUS 2.7 mg/dL (2.5-4.9); POTASSIUM 3.8 MEQ/L (3.7-5.4); SODIUM 137 MEQ/L (136-147); UREA NITROGEN (BUN) 4 mg/dL (9-23)
[2017-07-30 06:59] VITALS: BP 99/58
[2017-07-30 15:50] VITALS: BP 100/74
[2017-07-30 23:28] VITALS: BP 101/61
[2017-07-31 06:14] LABS: HEMATOCRIT 36.4 % (36.0-46.0); MCH 30.4 PG (29.0-34.0); MCHC 34.9 G/DL (30.0-36.0); MCV 87.1 FL (83-99); RBC DIS.WIDTH-CV 13.6 % (11.8-14.6); RBC DIS.WIDTH-SD 42.8 % (39-53); RED BLOOD COUNT 4.18 M/uL (3.80-5.20); WHITE BLOOD COUNT 5.4 K/uL (4.1-10.2)
[2017-07-31 06:28] LABS: HEMOGLOBIN 12.7 G/DL (11.9-15.5)
[2017-07-31 06:38] LABS: CHLORIDE 109 MEQ/L (99-109); CREATININE 0.4 MG/DL (0.6-1.3); GFR ESTIMATE (CALCULATED) > 59 mL/min/; GLUCOSE 237 mg/dL (70-99); POTASSIUM 3.1 MEQ/L (3.7-5.4); SODIUM 143 MEQ/L (136-147); UREA NITROGEN (BUN) 8 mg/dL (9-23)
[2017-07-31 07:16] LABS: PLAT.SUFFICIENCY ADEQUATE
[2017-07-31 07:17] LABS: PLATELET COUNT 230 K/uL (156-360)
[2017-07-31 07:23] VITALS: BP 92/65
[2017-07-31 16:15] VITALS: BP 104/59
== END 2017-07-31 20:30 | disposition home or self-care (01) | DRG 639 ==
LOC: EME 20:21 → EDOF 07-29 02:06 → 5EAST 07-29 02:06 → ENRESERV 07-29 02:07 → 4WEST 07-29 03:35 → ENRESERV 07-29 19:16 → 4WEST 07-29 19:34 → ENRESERV 07-29 21:25 → 5EAST 07-29 22:17
PROVIDERS: Hospitalist; Internal Medicine; Nurse Practitioner Acute Care; Obstetrics & Gynecology
DX: E10.10 Type 1 diabetes mellitus with ketoacidosis without coma (principal); G80.9 Cerebral palsy, unspecified; G40.909 Epilepsy, unspecified, not intractable, without status epilepticus; F90.9 Attention-deficit hyperactivity disorder, unspecified type; E83.39 Other disorders of phosphorus metabolism; E87.6 Hypokalemia; Z79.4 Long term (current) use of insulin; Z91.19 Patient's noncompliance with other medical treatment and regimen; F17.200 Nicotine dependence, unspecified, uncomplicated
CPT/HCPCS: 36600; 80048; 80048 91; 80053; 81003; 82010; 82803; 82948; 83036; 83735; 84100; 84702; 85027; 87086; 87641; 93005; 99281; 99285; J0696; J1650; J1815; J3480; J7030; J7040; J7050; J7120

== ENCOUNTER 2017-08-21 11:17 | Inpatient (IN) | payer OTHER ==
[2017-08-21] VITALS (9 sets, daily range): BP systolic 104–129; BP diastolic 65–91
[~2017-08-21] VITALS: Ht 154.9 cm; Wt 47.9 kg
[2017-08-21 11:40] LABS: APPEARANCE CLOUDY ((CLEAR)); BILIRUBIN NEGATIVE; BLOOD SMALL; COLOR YELLOW ((YELLOW)); GLUCOSE (STRIP) >=500; KETONES 80; LEUKOCYTES MODERATE; NITRITE NEGATIVE; PROTEIN (STRIP) 100; SPECIFIC GRAVITY 1.031 (1.000-1.030); UROBILINOGEN 0.2 MG/DL (0.2-1.0)
[2017-08-21 11:46] LABS: BACTERIA RARE /HPF; EPITHELIAL CELLS 1+ /HPF; MUCUS TRACE /LPF; UCUL ADDED? YES; WHITE BLOOD CELLS 30-40 /HPF (0-5)
[2017-08-21 11:47] LABS: HEMATOCRIT 50.6 % (36.0-46.0); HEMOGLOBIN 16.6 G/DL (11.9-15.5); MCH 30.3 PG (29.0-34.0); MCHC 32.8 G/DL (30.0-36.0); MCV 92.3 FL (83-99); PLATELET COUNT 384 K/uL (156-360); RBC DIS.WIDTH-CV 13.1 % (11.8-14.6); RBC DIS.WIDTH-SD 44.3 % (39-53); RED BLOOD COUNT 5.48 M/uL (3.80-5.20); WHITE BLOOD COUNT 13.2 K/uL (4.1-10.2)
[2017-08-21 11:58] LABS: ALBUMIN 4.7 g/dL (3.2-4.8)
[2017-08-21 11:59] LABS: CHLORIDE 112 mEq/L (99-109); POTASSIUM 3.9 mEq/L (3.7-5.4); SODIUM 140 mEq/L (136-147)
[2017-08-21 12:01] LABS: GLUCOSE 362 mg/dL (70-99); TOTAL PROTEIN 8.5 g/dL (6.4-8.3)
[2017-08-21 12:03] LABS: TOTAL BILIRUBIN 0.2 mg/dL (0.0-1.0)
[2017-08-21 12:04] LABS: ALKALINE PHOSPHATASE 125 IU/L (3-129)
[2017-08-21 12:05] LABS: CREATININE 1.1 mg/dL (0.6-1.3); GFR ESTIMATE (CALCULATED) > 59 mL/min/
[2017-08-21 12:06] LABS: AST (GOT) 13 IU/L (2-34); UREA NITROGEN (BUN) 14 mg/dL (9-23)
[2017-08-21 12:07] LABS: ALT (GPT) 18 IU/L (3-49)
[2017-08-21 12:13] LABS: QUANTITATIVE HCG < 4.0 MIU/ML
[2017-08-21 14:12] LABS: VENOUS PCO2 < 18 mm Hg (41-51)
[2017-08-21] MEDS ORDERED: NOVOLOG 10100 UNITS/ SC (15:00)
[2017-08-21 15:49] LABS: CHLORIDE 112 MEQ/L (99-109); CREATININE 0.7 MG/DL (0.6-1.3); GFR ESTIMATE (CALCULATED) > 59 mL/min/; GLUCOSE 344 mg/dL (70-99); PHOSPHORUS 2.6 mg/dL (2.5-4.9); POTASSIUM 3.8 MEQ/L (3.7-5.4); SODIUM 136 MEQ/L (136-147); UREA NITROGEN (BUN) 16 mg/dL (9-23)
[2017-08-21 20:28] LABS: CHLORIDE 112 MEQ/L (99-109); CREATININE 0.6 MG/DL (0.6-1.3); GFR ESTIMATE (CALCULATED) > 59 mL/min/; GLUCOSE 200 mg/dL (70-99); PHOSPHORUS 1.8 mg/dL (2.5-4.9); POTASSIUM 3.2 MEQ/L (3.7-5.4); SODIUM 134 MEQ/L (136-147); UREA NITROGEN (BUN) 11 mg/dL (9-23)
[2017-08-21 20:30] LABS: CARBON DIOXIDE (BICARBONATE) < 10.0 MEQ/L (20-31)
[2017-08-21] MEDS ORDERED: BUSPAR7.5 MG PO (22:29)
[2017-08-22] VITALS (17 sets, daily range): BP systolic 91–112; BP diastolic 58–81
[2017-08-22 01:08] LABS: CHLORIDE 112 mEq/L (99-109); POTASSIUM 3.2 mEq/L (3.7-5.4)
[2017-08-22 01:09] LABS: SODIUM 134 mEq/L (136-147)
[2017-08-22 01:10] LABS: GLUCOSE 251 mg/dL (70-99)
[2017-08-22 01:14] LABS: CREATININE 0.8 mg/dL (0.6-1.3); GFR ESTIMATE (CALCULATED) > 59 mL/min/; PHOSPHORUS 1.2 mg/dL (2.5-4.9)
[2017-08-22 01:15] LABS: UREA NITROGEN (BUN) 10 mg/dL (9-23)
[2017-08-22 04:33] LABS: CHLORIDE 113 mEq/L (99-109); POTASSIUM 2.8 mEq/L (3.7-5.4); SODIUM 138 mEq/L (136-147)
[2017-08-22 04:35] LABS: GLUCOSE 159 mg/dL (70-99)
[2017-08-22 04:39] LABS: CREATININE 0.7 mg/dL (0.6-1.3); GFR ESTIMATE (CALCULATED) > 59 mL/min/
[2017-08-22 04:40] LABS: UREA NITROGEN (BUN) 11 mg/dL (9-23)
[2017-08-22 09:12] LABS: CHLORIDE 111 MEQ/L (99-109); CREATININE 0.5 MG/DL (0.6-1.3); GFR ESTIMATE (CALCULATED) > 59 mL/min/; GLUCOSE 137 mg/dL (70-99); PHOSPHORUS 1.1 mg/dL (2.5-4.9); POTASSIUM 2.9 MEQ/L (3.7-5.4); SODIUM 137 MEQ/L (136-147); UREA NITROGEN (BUN) 11 mg/dL (9-23)
[2017-08-22 11:23] LABS: HEMOGLOBIN A1c (GLYCOHEMOGLOB) 12.8 % (Below 5.7)
[2017-08-22 12:47] LABS: CHLORIDE 109 MEQ/L (99-109); CREATININE 0.4 MG/DL (0.6-1.3); GFR ESTIMATE (CALCULATED) > 59 mL/min/; GLUCOSE 177 mg/dL (70-99); MAGNESIUM 1.6 mg/dl (1.3-2.7); SODIUM 135 MEQ/L (136-147); UREA NITROGEN (BUN) 10 mg/dL (9-23)
[2017-08-22 12:50] LABS: PHOSPHORUS 1.7 mg/dL (2.5-4.9); POTASSIUM 3.5 MEQ/L (3.7-5.4)
[2017-08-23 07:08] VITALS: BP 92/66
[2017-08-23 08:42] LABS: HEMATOCRIT 33.7 % (36.0-46.0); MCH 30.1 PG (29.0-34.0); MCHC 35.3 G/DL (30.0-36.0); RBC DIS.WIDTH-CV 13.4 % (11.8-14.6); RBC DIS.WIDTH-SD 41.8 % (39-53)
[2017-08-23 08:57] LABS: HEMOGLOBIN 11.9 G/DL (11.9-15.5); MCV 85.3 FL (83-99); RED BLOOD COUNT 3.95 M/uL (3.80-5.20)
[2017-08-23 09:07] LABS: CHLORIDE 110 MEQ/L (99-109); CREATININE 0.4 MG/DL (0.6-1.3); GFR ESTIMATE (CALCULATED) > 59 mL/min/; GLUCOSE 161 mg/dL (70-99); POTASSIUM 3.1 MEQ/L (3.7-5.4); SODIUM 141 MEQ/L (136-147); UREA NITROGEN (BUN) 5 mg/dL (9-23)
[2017-08-23 09:08] LABS: PLAT.SUFFICIENCY ADEQUATE
[2017-08-23 09:13] LABS: PLATELET COUNT 234 K/uL (156-360)
[2017-08-23 16:53] VITALS: BP 115/85
[2017-08-23 19:20] VITALS: BP 122/74
[2017-08-23 23:59] VITALS: BP 109/77
[2017-08-24 04:00] VITALS: BP 125/78
[2017-08-24 07:35] VITALS: BP 108/75
[2017-08-24 11:15] VITALS: BP 113/64
[2017-08-24 11:56] LABS: CHLORIDE 105 MEQ/L (99-109); POTASSIUM 3.4 MEQ/L (3.7-5.4); SODIUM 137 MEQ/L (136-147)
[2017-08-24 12:18] LABS: CREATININE 0.4 MG/DL (0.6-1.3); GFR ESTIMATE (CALCULATED) > 59 mL/min/; UREA NITROGEN (BUN) 7 mg/dL (9-23)
[2017-08-24 12:19] LABS: GLUCOSE 269 mg/dL (70-99)
== END 2017-08-24 16:27 | disposition home or self-care (01) | DRG 871 ==
LOC: EME 11:17 → 2EAST 14:43 → EDOF 14:43 → ENRESERV 14:50 → 4WEST 15:20 → ENRESERV 08-22 14:45 → 4WEST 08-22 14:45 → ENRESERV 08-22 14:56 → 2EAST 08-22 16:16 → ENPENDDIS 08-24 → 2EAST 08-24 16:27
PROVIDERS: Emergency Medicine; Internal Medicine; Internal Medicine Critical Care Medicine; Nurse Practitioner Family
DX: A41.9 Sepsis, unspecified organism (principal); N39.0 Urinary tract infection, site not specified; E10.10 Type 1 diabetes mellitus with ketoacidosis without coma; G40.909 Epilepsy, unspecified, not intractable, without status epilepticus; R30.0 Dysuria; E87.2 Acidosis; Z79.4 Long term (current) use of insulin; F17.200 Nicotine dependence, unspecified, uncomplicated; K31.84 Gastroparesis; E86.0 Dehydration; Z86.73 Personal history of transient ischemic attack (TIA), and cerebral infarction without residual deficits; G80.9 Cerebral palsy, unspecified
CPT/HCPCS: 71045; 80048; 80048 91; 80053; 81003; 82010; 82803; 82948; 83036; 83605; 83690; 83735; 83930; 84100; 84702; 85027; 87040; 87086; 87641; 99281; 99285; C1753; J0696; J1644; J1650; J1815; J7040; J7050; J7070

== ENCOUNTER 2017-09-05 20:38 | Inpatient (IN) | payer OTHER ==
[~2017-09-05] VITALS: Ht 160 cm; Wt 52.0 kg
[~2017-09-05 20:38] MED LIST changes: +BUSPAR7.5 MG PO
[2017-09-05 21:00] LABS: APPEARANCE CLEAR ((CLEAR)); BILIRUBIN NEGATIVE; BLOOD MODERATE; COLOR YELLOW ((YELLOW)); GLUCOSE (STRIP) >=500; KETONES 80; LEUKOCYTES NEGATIVE; NITRITE NEGATIVE; PROTEIN (STRIP) 30; SPECIFIC GRAVITY 1.035 (1.000-1.030); UROBILINOGEN 0.2 MG/DL (0.2-1.0)
[2017-09-05 21:05] LABS: BACTERIA RARE /HPF; EPITHELIAL CELLS 2+ /HPF; MUCUS TRACE /LPF; RED BLOOD CELLS 0-5 /HPF (0-5); UCUL ADDED? YES
[2017-09-06 00:58] LABS: HEMATOCRIT 42.4 % (36.0-46.0); HEMOGLOBIN 14.7 G/DL (11.9-15.5); MCH 30.9 PG (29.0-34.0); MCHC 34.7 G/DL (30.0-36.0); MCV 89.3 FL (83-99); PLATELET COUNT 329 K/uL (156-360); RBC DIS.WIDTH-CV 13.3 % (11.8-14.6); RBC DIS.WIDTH-SD 43.6 % (39-53); RED BLOOD COUNT 4.75 M/uL (3.80-5.20); WHITE BLOOD COUNT 6.8 K/uL (4.1-10.2)
[2017-09-06 01:06] LABS: CHLORIDE 109 mEq/L (99-109); POTASSIUM 3.6 mEq/L (3.7-5.4); SODIUM 137 mEq/L (136-147)
[2017-09-06 01:07] LABS: GLUCOSE 288 mg/dL (70-99)
[2017-09-06 01:11] LABS: GFR ESTIMATE (CALCULATED) > 59 mL/min/
[2017-09-06 01:12] LABS: UREA NITROGEN (BUN) 12 mg/dL (9-23)
[2017-09-06 01:54] LABS: MAGNESIUM 2.2 mg/dL (1.3-2.7)
[2017-09-06 02:00] LABS: PHOSPHORUS 2.5 mg/dL (2.5-4.9)
[2017-09-06 02:51] LABS: BASE EXCESS -12.9 mEq/L (-3 to +3); BICARBONATE 12.4 mEq/L (22-26); CARBOXY HGB 1.6 % (0-5); COMMENTS - BLOOD GASES C+A+; DEVICE ROOM AIR; METHEMOGLOBIN 1.1 % (0-1.5); PCO2 27 mm Hg (35-45); PO2 105 mm Hg (80-100); SITE LR; pH 7.27 (7.35-7.45)
[2017-09-06 04:27] LABS: BICARBONATE 12.6 mEq/L (22-26); CARBOXY HGB 1.4 % (0-5); COMMENTS - BLOOD GASES C+A+; DEVICE ROOM AIR; METHEMOGLOBIN 1.1 % (0-1.5); PCO2 28 mm Hg (35-45); PO2 100 mm Hg (80-100); SITE LR; pH 7.26 (7.35-7.45)
[2017-09-06 04:28] LABS: CHLORIDE 114 mEq/L (99-109); SODIUM 139 mEq/L (136-147)
[2017-09-06 04:30] LABS: GLUCOSE 164 mg/dL (70-99)
[2017-09-06 04:34] LABS: CREATININE 0.7 mg/dL (0.6-1.3); GFR ESTIMATE (CALCULATED) > 59 mL/min/
[2017-09-06 04:35] LABS: UREA NITROGEN (BUN) 9 mg/dL (9-23)
[2017-09-06 05:10] LABS: ACETAMINOPHEN (TYLENOL) < 10 mcg/mL (10-30); SALICYLATE < 5.0 MG/DL (15-30)
[2017-09-06 06:42] LABS: CARBON DIOXIDE (BICARBONATE) 16.3 MEQ/L (20-31)
[2017-09-06] MEDS ORDERED: MOTRIN IB200 MG PO (08:12)
[2017-09-06] MEDS ORDERED: TYLENOL EXTRA500 MG PO (08:12)
[2017-09-06 12:12] LABS: CHLORIDE 113 mEq/L (99-109); SODIUM 141 mEq/L (136-147)
[2017-09-06 12:14] LABS: GLUCOSE 162 mg/dL (70-99)
[2017-09-06 12:18] LABS: CREATININE 0.6 mg/dL (0.6-1.3); GFR ESTIMATE (CALCULATED) > 59 mL/min/
[2017-09-06 12:19] LABS: UREA NITROGEN (BUN) 7 mg/dL (9-23)
[2017-09-06 16:52] VITALS: BP 112/75; BP 112/78
[2017-09-06 18:14] LABS: CHLORIDE 108 mEq/L (99-109); SODIUM 139 mEq/L (136-147)
[2017-09-06 18:16] LABS: GLUCOSE 229 mg/dL (70-99)
[2017-09-06 18:18] LABS: MAGNESIUM 1.7 mg/dL (1.3-2.7)
[2017-09-06 18:20] LABS: CREATININE 0.7 mg/dL (0.6-1.3); GFR ESTIMATE (CALCULATED) > 59 mL/min/
[2017-09-06 18:21] LABS: UREA NITROGEN (BUN) 7 mg/dL (9-23)
[2017-09-06 19:44] VITALS: BP 108/74
[2017-09-06 22:56] VITALS: BP 110/79
[2017-09-07 04:06] VITALS: BP 114/79
[2017-09-07 05:36] LABS: BASOPHIL (%) 0.8 % (0-1); EOSINOPHIL COUNT 0.2 K/uL (0-0.3); HEMATOCRIT 36.3 % (36.0-46.0); IMMATURE GRANULOCYTE (%) 0.6 % (0.0-0.7); MCH 29.6 PG (29.0-34.0); MCHC 34.2 G/DL (30.0-36.0); MCV 86.6 FL (83-99); MONOCYTE (%) 10.6 % (3-12); MONOCYTE COUNT 0.5 K/uL (0-0.8); NEUTROPHIL COUNT 2.3 K/uL (1.8-6.4); PLATELET COUNT 260 K/uL (156-360); RBC DIS.WIDTH-CV 13.7 % (11.8-14.6); RED BLOOD COUNT 4.19 M/uL (3.80-5.20)
[2017-09-07 05:37] LABS: HEMOGLOBIN 12.4 G/DL (11.9-15.5)
[2017-09-07 06:17] LABS: CHLORIDE 102 MEQ/L (99-109); CREATININE 0.5 MG/DL (0.6-1.3); GFR ESTIMATE (CALCULATED) > 59 mL/min/; SODIUM 134 MEQ/L (136-147); UREA NITROGEN (BUN) 6 mg/dL (9-23)
[2017-09-07 06:18] LABS: GLUCOSE 532 mg/dL (70-99); PHOSPHORUS 3.5 mg/dL (2.5-4.9); POTASSIUM 3.8 MEQ/L (3.7-5.4)
[2017-09-07 07:17] VITALS: BP 11/77
[2017-09-07 13:02] VITALS: BP 95/69
[2017-09-07 15:10] VITALS: BP 105/60
== END 2017-09-07 20:16 | disposition home or self-care (01) | DRG 639 ==
LOC: EME 20:38 → EDOF 09-06 15:22 → ENRESERV 09-06 15:31 → 4EAST 09-06 16:46
PROVIDERS: Emergency Medicine; Internal Medicine
DX: E10.10 Type 1 diabetes mellitus with ketoacidosis without coma (principal); E83.51 Hypocalcemia; E87.6 Hypokalemia; G80.9 Cerebral palsy, unspecified; G40.909 Epilepsy, unspecified, not intractable, without status epilepticus; F17.200 Nicotine dependence, unspecified, uncomplicated; Z91.19 Patient's noncompliance with other medical treatment and regimen; Z79.4 Long term (current) use of insulin; Z87.440 Personal history of urinary (tract) infections; Z86.73 Personal history of transient ischemic attack (TIA), and cerebral infarction without residual deficits; Z83.3 Family history of diabetes mellitus; Z80.0 Family history of malignant neoplasm of digestive organs
CPT/HCPCS: 36600; 74176; 80047; 80048; 80048 91; 81003; 81025; 82010; 82803; 82948; 83735; 84100; 84999; 85025; 85027; 87086; 99281; 99285; G0480; J0610; J0696; J1650; J1815; J2405; J7030; J7050

== ENCOUNTER 2017-09-16 12:05 | Inpatient (IN) | payer OTHER ==
[2017-09-16] VITALS (7 sets, daily range): BP systolic 91–118; BP diastolic 72–84
[~2017-09-16] VITALS: Ht 157.5 cm; Wt 50.7 kg
[~2017-09-16 12:05] MED LIST changes: +MOTRIN IB200 MG PO
[2017-09-16 12:54] LABS: HEMATOCRIT 40.7 % (36.0-46.0); MCH 31.5 PG (29.0-34.0); MCHC 35.6 G/DL (30.0-36.0); MCV 88.3 FL (83-99); PLATELET COUNT 318 K/uL (156-360); RBC DIS.WIDTH-CV 13.3 % (11.8-14.6); RBC DIS.WIDTH-SD 42.9 % (39-53); RED BLOOD COUNT 4.61 M/uL (3.80-5.20); WHITE BLOOD COUNT 6.8 K/uL (4.1-10.2)
[2017-09-16 12:55] LABS: HEMOGLOBIN 14.5 G/DL (11.9-15.5)
[2017-09-16 12:59] LABS: ALBUMIN 4.2 g/dL (3.2-4.8); CHLORIDE 100 mEq/L (99-109); POTASSIUM 4.2 mEq/L (3.7-5.4); SODIUM 134 mEq/L (136-147)
[2017-09-16 13:02] LABS: TOTAL PROTEIN 7.9 g/dL (6.4-8.3)
[2017-09-16 13:04] LABS: TOTAL BILIRUBIN 0.3 mg/dL (0.0-1.0)
[2017-09-16 13:05] LABS: ALKALINE PHOSPHATASE 110 IU/L (3-129); CREATININE 1.1 mg/dL (0.6-1.3); GFR ESTIMATE (CALCULATED) > 59 mL/min/
[2017-09-16 13:06] LABS: UREA NITROGEN (BUN) 12 mg/dL (9-23)
[2017-09-16 13:07] LABS: AST (GOT) 11 IU/L (2-34)
[2017-09-16 13:08] LABS: ALT (GPT) 13 IU/L (3-49)
[2017-09-16 13:15] LABS: QUANTITATIVE HCG < 4.0 MIU/ML
[2017-09-16 13:23] LABS: GLUCOSE 765 mg/dL (70-99)
[2017-09-16 13:30] LABS: APPEARANCE CLEAR ((CLEAR)); BILIRUBIN NEGATIVE; BLOOD NEGATIVE; COLOR STRAW ((YELLOW)); GLUCOSE (STRIP) >=500; KETONES 80; LEUKOCYTES SMALL; NITRITE NEGATIVE; PROTEIN (STRIP) NEGATIVE; SPECIFIC GRAVITY 1.036 (1.000-1.030); UROBILINOGEN 0.2 MG/DL (0.2-1.0)
[2017-09-16 13:33] LABS: BACTERIA RARE /HPF; EPITHELIAL CELLS 1+ /HPF; MUCUS NONE SEEN /LPF; UCUL ADDED? YES
[2017-09-16 13:52] LABS: CARBON DIOXIDE (BICARBONATE) 17.3 MEQ/L (20-31)
[2017-09-16 13:53] LABS: AMPHETAMINE NEGATIVE (500 ng/mL); BARBITURATES NEGATIVE (200 ng/mL); BENZODIAZEPINES NEGATIVE (150 ng/mL); BUPRENORPHINE NEGATIVE (10 ng/mL); COCAINE NEGATIVE (150 ng/mL); METHADONE NEGATIVE (200 ng/mL); METHAMPHETAMINE NEGATIVE (500 ng/mL); OPIATES (MORPHINE) NEGATIVE (100 ng/mL); OXYCODONE NEGATIVE (100 ng/mL); PHENCYCLIDINE NEGATIVE (25 ng/mL); PROPOXYPHENE NEGATIVE (300 ng/mL); THC CANNABINOIDS NEGATIVE (50 ng/mL); TRICYCLIC ANTIDEPRESSANTS NEGATIVE (300 ng/mL)
[2017-09-16 20:09] LABS: CHLORIDE 111 MEQ/L (99-109); POTASSIUM 3.8 MEQ/L (3.7-5.4); SODIUM 138 MEQ/L (136-147)
[2017-09-16 20:14] LABS: PHOSPHORUS 2.6 mg/dL (2.5-4.9); UREA NITROGEN (BUN) 7 mg/dL (9-23)
[2017-09-16 20:16] LABS: CREATININE 0.4 MG/DL (0.6-1.3); GFR ESTIMATE (CALCULATED) > 59 mL/min/; GLUCOSE 190 mg/dL (70-99)
[2017-09-17] VITALS (12 sets, daily range): BP systolic 90–112; BP diastolic 61–91
[2017-09-17 00:45] LABS: CHLORIDE 109 mEq/L (99-109); POTASSIUM 4.1 mEq/L (3.7-5.4); SODIUM 137 mEq/L (136-147)
[2017-09-17 00:47] LABS: GLUCOSE 167 mg/dL (70-99)
[2017-09-17 00:51] LABS: CREATININE 0.6 mg/dL (0.6-1.3); GFR ESTIMATE (CALCULATED) > 59 mL/min/; PHOSPHORUS 2.6 mg/dL (2.5-4.9)
[2017-09-17 00:52] LABS: UREA NITROGEN (BUN) 6 mg/dL (9-23)
[2017-09-17 04:42] LABS: CHLORIDE 107 mEq/L (99-109); SODIUM 138 mEq/L (136-147)
[2017-09-17 04:47] LABS: CREATININE 0.6 mg/dL (0.6-1.3); GFR ESTIMATE (CALCULATED) > 59 mL/min/; PHOSPHORUS 3.5 mg/dL (2.5-4.9)
[2017-09-17 04:48] LABS: UREA NITROGEN (BUN) 5 mg/dL (9-23)
[2017-09-17 04:50] LABS: GLUCOSE 308 mg/dL (70-99); POTASSIUM 2.9 mEq/L (3.7-5.4)
[2017-09-17 07:43] LABS: MAGNESIUM 1.6 mg/dL (1.3-2.7)
[2017-09-17 08:41] LABS: CHLORIDE 105 MEQ/L (99-109); CREATININE 0.4 MG/DL (0.6-1.3); GFR ESTIMATE (CALCULATED) > 59 mL/min/; POTASSIUM 2.8 MEQ/L (3.7-5.4); SODIUM 138 MEQ/L (136-147); UREA NITROGEN (BUN) 4 mg/dL (9-23)
[2017-09-17 08:50] LABS: GLUCOSE 139 mg/dL (70-99); PHOSPHORUS 4.1 mg/dL (2.5-4.9)
[2017-09-17 09:29] LABS: HEMOGLOBIN A1c (GLYCOHEMOGLOB) 12.4 % (Below 5.7)
[2017-09-17 18:25] LABS: CHLORIDE 103 MEQ/L (99-109); CREATININE 0.4 MG/DL (0.6-1.3); GFR ESTIMATE (CALCULATED) > 59 mL/min/; SODIUM 136 MEQ/L (136-147); UREA NITROGEN (BUN) 7 mg/dL (9-23)
[2017-09-17 18:29] LABS: GLUCOSE 232 mg/dL (70-99); POTASSIUM 4.3 MEQ/L (3.7-5.4)
[2017-09-18 00:52] VITALS: BP 102/64
[2017-09-18 07:28] VITALS: BP 89/57
== END 2017-09-18 14:55 | disposition home or self-care (01) | DRG 639 ==
LOC: EME 12:05 → EDOF 15:47 → 4WEST 15:47 → ENRESERV 15:48 → 4WEST 16:41 → ENRESERV 09-17 09:27 → 4WEST 09-17 10:45 → 2EAST 09-17 11:47
PROVIDERS: Emergency Medicine; Hospitalist; Internal Medicine Critical Care Medicine
DX: E10.10 Type 1 diabetes mellitus with ketoacidosis without coma (principal); G40.909 Epilepsy, unspecified, not intractable, without status epilepticus; Z91.19 Patient's noncompliance with other medical treatment and regimen; Z79.4 Long term (current) use of insulin; Z86.73 Personal history of transient ischemic attack (TIA), and cerebral infarction without residual deficits; Z87.891 Personal history of nicotine dependence
CPT/HCPCS: 80048; 80048 91; 80053; 81003; 82010; 82803; 82948; 83036; 83735; 84100; 84702; 85027; 87086; 87641; 99281; 99285; J1650; J1815; J7030; J7050; J7120

== ENCOUNTER 2017-10-06 21:34 | Inpatient (IN) | payer OTHER ==
[~2017-10-06] VITALS: Ht 154.9 cm; Wt 50.3 kg
[~2017-10-06 21:34] MED LIST changes: +BUSPAR5 MG PO; -BUSPAR7.5 MG PO
[2017-10-06 22:05] LABS: HEMATOCRIT 44.7 % (36.0-46.0); HEMOGLOBIN 15.4 G/DL (11.9-15.5); MCHC 34.5 G/DL (30.0-36.0); MCV 89.9 FL (83-99); PLATELET COUNT 368 K/uL (156-360); RBC DIS.WIDTH-CV 13.1 % (11.8-14.6); RED BLOOD COUNT 4.97 M/uL (3.80-5.20); WHITE BLOOD COUNT 6.6 K/uL (4.1-10.2)
[2017-10-06 22:13] LABS: CHLORIDE 97 mEq/L (99-109); POTASSIUM 3.9 mEq/L (3.7-5.4); SODIUM 134 mEq/L (136-147)
[2017-10-06 22:16] LABS: TOTAL PROTEIN 9.2 g/dL (6.4-8.3)
[2017-10-06 22:17] LABS: TOTAL BILIRUBIN 0.4 mg/dL (0.0-1.0)
[2017-10-06 22:19] LABS: ALKALINE PHOSPHATASE 134 IU/L (3-129); GFR ESTIMATE (CALCULATED) > 59 mL/min/; GLUCOSE 540 mg/dL (70-99)
[2017-10-06 22:20] LABS: UREA NITROGEN (BUN) 12 mg/dL (9-23)
[2017-10-06 22:21] LABS: AST (GOT) 11 IU/L (2-34)
[2017-10-06 22:22] LABS: ALT (GPT) 18 IU/L (3-49)
[2017-10-06 22:28] LABS: QUANTITATIVE HCG < 4.0 MIU/ML
[2017-10-06 22:44] LABS: CARBON DIOXIDE (BICARBONATE) 17.9 MEQ/L (20-31)
[2017-10-07] VITALS (13 sets, daily range): BP systolic 100–122; BP diastolic 72–92
[2017-10-07 00:40] LABS: POTASSIUM 3.6 mEq/L (3.7-5.4); SODIUM 138 mEq/L (136-147)
[2017-10-07 00:41] LABS: GLUCOSE 310 mg/dL (70-99)
[2017-10-07 00:45] LABS: CREATININE 0.7 mg/dL (0.6-1.3); GFR ESTIMATE (CALCULATED) > 59 mL/min/; PHOSPHORUS 2.8 mg/dL (2.5-4.9)
[2017-10-07 00:46] LABS: UREA NITROGEN (BUN) 11 mg/dL (9-23)
[2017-10-07 00:54] LABS: CHLORIDE 108 mEq/L (99-109)
[2017-10-07 05:38] LABS: CHLORIDE 110 MEQ/L (99-109); POTASSIUM 3.4 MEQ/L (3.7-5.4); SODIUM 140 MEQ/L (136-147)
[2017-10-07 05:44] LABS: CREATININE 0.5 MG/DL (0.6-1.3); GFR ESTIMATE (CALCULATED) > 59 mL/min/; GLUCOSE 163 mg/dL (70-99); PHOSPHORUS 2.9 mg/dL (2.5-4.9); UREA NITROGEN (BUN) 10 mg/dL (9-23)
[2017-10-07 08:58] LABS: CHLORIDE 108 MEQ/L (99-109); CREATININE 0.4 MG/DL (0.6-1.3); GFR ESTIMATE (CALCULATED) > 59 mL/min/; GLUCOSE 146 mg/dL (70-99); PHOSPHORUS 3.2 mg/dL (2.5-4.9); POTASSIUM 3.8 MEQ/L (3.7-5.4); SODIUM 136 MEQ/L (136-147); UREA NITROGEN (BUN) 10 mg/dL (9-23)
[2017-10-07 14:47] LABS: CHLORIDE 103 MEQ/L (99-109); POTASSIUM 4.1 MEQ/L (3.7-5.4); SODIUM 134 MEQ/L (136-147)
[2017-10-07 14:53] LABS: CREATININE 0.5 MG/DL (0.6-1.3); GFR ESTIMATE (CALCULATED) > 59 mL/min/; UREA NITROGEN (BUN) 9 mg/dL (9-23)
[2017-10-07 15:01] LABS: GLUCOSE 391 mg/dL (70-99)
[2017-10-08 10:19] LABS: HEMOGLOBIN A1c (GLYCOHEMOGLOB) 12.9 % (Below 5.7)
== END 2017-10-07 15:43 | disposition left against medical advice (07) | DRG 639 ==
LOC: EME 21:34 → EDOF 23:26 → 4WEST 23:26 → ENRESERV 23:28 → 4WEST 10-07 00:36
PROVIDERS: Emergency Medicine; Specialist; Surgery
DX: E10.10 Type 1 diabetes mellitus with ketoacidosis without coma (principal); G43.909 Migraine, unspecified, not intractable, without status migrainosus; F41.9 Anxiety disorder, unspecified; G80.9 Cerebral palsy, unspecified; F90.9 Attention-deficit hyperactivity disorder, unspecified type; F32.9 Major depressive disorder, single episode, unspecified; Z87.891 Personal history of nicotine dependence; Z91.14 Patient's other noncompliance with medication regimen; Z91.11 Patient's noncompliance with dietary regimen; Z79.4 Long term (current) use of insulin; Z86.73 Personal history of transient ischemic attack (TIA), and cerebral infarction without residual deficits
CPT/HCPCS: 80048; 80048 91; 80053; 81003; 82010; 82803; 82948; 83036; 84100; 84702; 85027; 87641; 99281; 99285; J1650; J1815; J7030; J7050

== ENCOUNTER 2017-10-12 13:53 | Inpatient (IN) | payer OTHER ==
[~2017-10-12] VITALS: Ht 162.6 cm; Wt 49.6 kg
[2017-10-12 15:21] LABS: HEMATOCRIT 49.2 % (36.0-46.0); HEMOGLOBIN 16.3 G/DL (11.9-15.5); MCH 31.1 PG (29.0-34.0); MCHC 33.1 G/DL (30.0-36.0); MCV 93.9 FL (83-99); PLATELET COUNT 374 K/uL (156-360); RBC DIS.WIDTH-CV 13.2 % (11.8-14.6); RBC DIS.WIDTH-SD 45.5 % (39-53); RED BLOOD COUNT 5.24 M/uL (3.80-5.20); WHITE BLOOD COUNT 18.9 K/uL (4.1-10.2)
[2017-10-12 15:28] LABS: ALBUMIN 4.7 g/dL (3.2-4.8); CHLORIDE 106 mEq/L (99-109); POTASSIUM 4.3 mEq/L (3.7-5.4); SODIUM 134 mEq/L (136-147)
[2017-10-12 15:34] LABS: ALKALINE PHOSPHATASE 162 IU/L (3-129)
[2017-10-12 15:35] LABS: UREA NITROGEN (BUN) 12 mg/dL (9-23)
[2017-10-12 15:37] LABS: ALT (GPT) 16 IU/L (3-49)
[2017-10-12 15:38] LABS: LIPASE 16 U/L (1.0-51.0)
[2017-10-12 15:49] LABS: CREATININE 1.4 mg/dL (0.6-1.3); GFR ESTIMATE (CALCULATED) 50 mL/min/
[2017-10-12 15:50] LABS: AST (GOT) 16 IU/L (2-34); TOTAL BILIRUBIN 0.3 mg/dL (0.0-1.0)
[2017-10-12 15:51] LABS: GLUCOSE 441 mg/dL (70-99)
[2017-10-12 17:48] LABS: APPEARANCE SL.HAZY ((CLEAR)); BILIRUBIN NEGATIVE; BLOOD NEGATIVE; COLOR YELLOW ((YELLOW)); GLUCOSE (STRIP) >=500; KETONES 80; LEUKOCYTES NEGATIVE; NITRITE NEGATIVE; PROTEIN (STRIP) 100; SPECIFIC GRAVITY 1.022 (1.000-1.030); UROBILINOGEN 0.2 MG/DL (0.2-1.0)
[2017-10-12 17:53] LABS: BACTERIA NONE SEEN /HPF; EPITHELIAL CELLS RARE /HPF; MUCUS TRACE /LPF; RED BLOOD CELLS NONE SEEN /HPF (0-5); UCUL ADDED? NO; WHITE BLOOD CELLS 0-5 /HPF (0-5)
[2017-10-12 18:37] LABS: BICARBONATE 2.3 mEq/L (22-26); CARBOXY HGB 1.3 % (0-5); COMMENTS - BLOOD GASES A+C+; DEVICE RA; METHEMOGLOBIN 1.5 % (0-1.5); O2 SATURATION (CALCULATED) 99.6 % (95-99); PCO2 11 mm Hg (35-45); PO2 131 mm Hg (80-100); SITE RR; TOTAL RESP RATE 40 resp/min
[2017-10-12 18:38] LABS: BASE EXCESS -28.8 mEq/L (-3 to +3)
[2017-10-12 18:39] LABS: pH 6.92 (7.35-7.45)
[2017-10-12 19:00] VITALS: BP 114/89
[2017-10-12 20:00] VITALS: BP 120/74
[2017-10-12 20:51] LABS: CHLORIDE 112 MEQ/L (99-109); POTASSIUM 3.8 MEQ/L (3.7-5.4); SODIUM 136 MEQ/L (136-147); UREA NITROGEN (BUN) 10 mg/dL (9-23)
[2017-10-12 21:00] VITALS: BP 114/70
[2017-10-12 21:02] LABS: CREATININE 0.7 MG/DL (0.6-1.3); GFR ESTIMATE (CALCULATED) > 59 mL/min/; GLUCOSE 208 mg/dL (70-99); PHOSPHORUS 1.9 mg/dL (2.5-4.9)
[2017-10-12 21:28] LABS: BICARBONATE 3.6 mEq/L (22-26); CARBOXY HGB 1.4 % (0-5); COMMENTS - BLOOD GASES A+C+; DEVICE RA; METHEMOGLOBIN 1.3 % (0-1.5); O2 SATURATION (CALCULATED) 99.4 % (95-99); PCO2 11 mm Hg (35-45); PO2 113 mm Hg (80-100); SITE LR; TOTAL RESP RATE 31 resp/min
[2017-10-12 21:29] LABS: BASE EXCESS -23.4 mEq/L (-3 to +3); pH 7.12 (7.35-7.45)
[2017-10-13] VITALS (19 sets, daily range): BP systolic 94–134; BP diastolic 53–91
[2017-10-13 00:33] LABS: COMMENTS - BLOOD GASES C+; DEVICE RA; PCO2 13 mm Hg (35-45); PO2 106 mm Hg (80-100); SITE LR; TOTAL RESP RATE 30 resp/min; pH 7.28 (7.35-7.45)
[2017-10-13 00:34] LABS: BICARBONATE 6.1 mEq/L (22-26); CARBOXY HGB 1.2 % (0-5); METHEMOGLOBIN 1.2 % (0-1.5)
[2017-10-13 00:59] LABS: CHLORIDE 115 mEq/L (99-109); SODIUM 142 mEq/L (136-147)
[2017-10-13 01:00] LABS: GLUCOSE 188 mg/dL (70-99)
[2017-10-13 01:02] LABS: POTASSIUM 2.7 mEq/L (3.7-5.4)
[2017-10-13 01:04] LABS: CREATININE 0.7 mg/dL (0.6-1.3); GFR ESTIMATE (CALCULATED) > 59 mL/min/
[2017-10-13 01:05] LABS: UREA NITROGEN (BUN) 7 mg/dL (9-23)
[2017-10-13 01:12] LABS: PHOSPHORUS < 1.0 mg/dL (2.5-4.9)
[2017-10-13 04:38] LABS: HEMATOCRIT 31.8 % (36.0-46.0); HEMOGLOBIN 11.2 G/DL (11.9-15.5); MCH 31.2 PG (29.0-34.0); MCHC 35.2 G/DL (30.0-36.0); MCV 88.6 FL (83-99); RBC DIS.WIDTH-CV 13.1 % (11.8-14.6); RBC DIS.WIDTH-SD 42.5 % (39-53); RED BLOOD COUNT 3.59 M/uL (3.80-5.20); WHITE BLOOD COUNT 10.5 K/uL (4.1-10.2)
[2017-10-13 04:44] LABS: CHLORIDE 113 mEq/L (99-109); POTASSIUM 2.7 mEq/L (3.7-5.4); SODIUM 138 mEq/L (136-147)
[2017-10-13 04:45] LABS: CHLORIDE 114 mEq/L (99-109); POTASSIUM 2.8 mEq/L (3.7-5.4); SODIUM 140 mEq/L (136-147)
[2017-10-13 04:46] LABS: GLUCOSE 205 mg/dL (70-99)
[2017-10-13 04:48] LABS: GLUCOSE 206 mg/dL (70-99)
[2017-10-13 04:50] LABS: CREATININE 0.7 mg/dL (0.6-1.3); GFR ESTIMATE (CALCULATED) > 59 mL/min/
[2017-10-13 04:51] LABS: CREATININE 0.7 mg/dL (0.6-1.3); GFR ESTIMATE (CALCULATED) > 59 mL/min/; UREA NITROGEN (BUN) 5 mg/dL (9-23)
[2017-10-13 04:52] LABS: PHOSPHORUS 2.6 mg/dL (2.5-4.9); UREA NITROGEN (BUN) 5 mg/dL (9-23)
[2017-10-13 04:53] LABS: ALKALINE PHOSPHATASE 95 IU/L (3-129); AST (GOT) 7 IU/L (2-34); PHOSPHORUS 2.6 mg/dL (2.5-4.9); TOTAL BILIRUBIN 0.4 mg/dL (0.0-1.0)
[2017-10-13 04:54] LABS: ALT (GPT) 9 IU/L (3-49)
[2017-10-13 06:18] LABS: PLAT.SUFFICIENCY ADEQUATE
[2017-10-13 06:44] LABS: PLATELET COUNT 228 K/uL (156-360)
[2017-10-13 08:57] LABS: CHLORIDE 113 MEQ/L (99-109); CREATININE 0.6 MG/DL (0.6-1.3); GFR ESTIMATE (CALCULATED) > 59 mL/min/; GLUCOSE 176 mg/dL (70-99); PHOSPHORUS 3.7 mg/dL (2.5-4.9); POTASSIUM 4.3 MEQ/L (3.7-5.4); SODIUM 136 MEQ/L (136-147); UREA NITROGEN (BUN) 4 mg/dL (9-23)
[2017-10-13 12:33] LABS: CHLORIDE 109 MEQ/L (99-109); CREATININE 0.6 MG/DL (0.6-1.3); GFR ESTIMATE (CALCULATED) > 59 mL/min/; GLUCOSE 222 mg/dL (70-99); SODIUM 136 MEQ/L (136-147); UREA NITROGEN (BUN) 7 mg/dL (9-23)
[2017-10-13 12:35] LABS: PHOSPHORUS 1.9 mg/dL (2.5-4.9); POTASSIUM 2.7 MEQ/L (3.7-5.4)
[2017-10-13 16:19] LABS: CHLORIDE 110 MEQ/L (99-109); CREATININE 0.7 MG/DL (0.6-1.3); GFR ESTIMATE (CALCULATED) > 59 mL/min/; GLUCOSE 202 mg/dL (70-99); MAGNESIUM 1.3 mg/dl (1.3-2.7); PHOSPHORUS 2.1 mg/dL (2.5-4.9); POTASSIUM 2.8 MEQ/L (3.7-5.4); SODIUM 138 MEQ/L (136-147); UREA NITROGEN (BUN) 7 mg/dL (9-23)
[2017-10-14] VITALS (17 sets, daily range): BP systolic 104–123; BP diastolic 68–90
[2017-10-14 06:02] LABS: BASOPHIL (%) 0.4 % (0-1); EOSINOPHIL (%) 2.9 % (0-5); EOSINOPHIL COUNT 0.2 K/uL (0-0.3); HEMOGLOBIN 11.2 G/DL (11.9-15.5); IMMATURE GRANULOCYTE (%) 0.4 % (0.0-0.7); LYMPHOCYTE (%) 40.7 % (15-42); LYMPHOCYTE COUNT 2.1 K/uL (1.0-2.8); MCV 85.8 FL (83-99); MONOCYTE COUNT 0.5 K/uL (0-0.8); NEUTROPHIL (%) 45.6 % (45-76); NEUTROPHIL COUNT 2.3 K/uL (1.8-6.4); PLATELET COUNT 192 K/uL (156-360); RBC DIS.WIDTH-CV 13.1 % (11.8-14.6); RBC DIS.WIDTH-SD 40.9 % (39-53); RED BLOOD COUNT 3.73 M/uL (3.80-5.20); WHITE BLOOD COUNT 5.1 K/uL (4.1-10.2)
[2017-10-14 06:32] LABS: CHLORIDE 111 MEQ/L (99-109); CREATININE 0.5 MG/DL (0.6-1.3); GFR ESTIMATE (CALCULATED) > 59 mL/min/; MAGNESIUM 1.3 mg/dl (1.3-2.7); POTASSIUM 2.8 MEQ/L (3.7-5.4); SODIUM 143 MEQ/L (136-147); UREA NITROGEN (BUN) 9 mg/dL (9-23)
[2017-10-14 06:36] LABS: GLUCOSE 74 mg/dL (70-99)
[2017-10-14 13:08] LABS: HEMOGLOBIN A1c (GLYCOHEMOGLOB) 12.4 % (Below 5.7)
[2017-10-14 18:40] LABS: CHLORIDE 109 MEQ/L (99-109); CREATININE 0.5 MG/DL (0.6-1.3); GFR ESTIMATE (CALCULATED) > 59 mL/min/; SODIUM 140 MEQ/L (136-147); UREA NITROGEN (BUN) 8 mg/dL (9-23)
[2017-10-14 18:49] LABS: GLUCOSE 170 mg/dL (70-99); POTASSIUM 3.9 MEQ/L (3.7-5.4)
[2017-10-15 00:14] VITALS: BP 104/65
[2017-10-15 04:11] VITALS: BP 101/63
[2017-10-15 06:57] LABS: CHLORIDE 107 MEQ/L (99-109); CREATININE 0.4 MG/DL (0.6-1.3); GFR ESTIMATE (CALCULATED) > 59 mL/min/; GLUCOSE 122 mg/dL (70-99); POTASSIUM 3.2 MEQ/L (3.7-5.4); SODIUM 143 MEQ/L (136-147); UREA NITROGEN (BUN) 9 mg/dL (9-23)
[2017-10-15 06:58] LABS: MAGNESIUM 1.9 mg/dl (1.3-2.7); PHOSPHORUS 4.1 mg/dL (2.5-4.9)
[2017-10-15 07:13] VITALS: BP 94/61
[2017-10-15 11:30] VITALS: BP 96/60
[2017-10-15 16:00] VITALS: BP 109/76
[2017-10-15 18:37] LABS: CHLORIDE 107 MEQ/L (99-109); CREATININE 0.5 MG/DL (0.6-1.3); GFR ESTIMATE (CALCULATED) > 59 mL/min/; POTASSIUM 3.7 MEQ/L (3.7-5.4); SODIUM 141 MEQ/L (136-147); UREA NITROGEN (BUN) 12 mg/dL (9-23)
[2017-10-15 18:38] LABS: GLUCOSE 282 mg/dL (70-99)
[2017-10-15 23:06] VITALS: BP 103/66
[2017-10-16 07:02] VITALS: BP 111/63
[2017-10-16] MEDS ORDERED: LEVEMIR100 UNIT/2 SC (09:26)
[2017-10-16] MEDS ORDERED: NOVOLOG 10100 UNITS/ SC (09:27)
[2017-10-16 15:15] VITALS: BP 110/65
[2017-10-16 19:05] LABS: CHLORIDE 104 MEQ/L (99-109); CREATININE 0.5 MG/DL (0.6-1.3); GFR ESTIMATE (CALCULATED) > 59 mL/min/; GLUCOSE 306 mg/dL (70-99); POTASSIUM 4.2 MEQ/L (3.7-5.4); SODIUM 137 MEQ/L (136-147); UREA NITROGEN (BUN) 16 mg/dL (9-23)
== END 2017-10-16 20:57 | disposition home or self-care (01) | DRG 639 ==
LOC: EME 13:53 → EDOF 16:42 → 4WEST 16:42 → ENRESERV 16:43 → 4WEST 17:49 → ENRESERV 10-14 18:18 → 5EAST 10-14 20:10 → ENPENDDIS 10-16 → 5EAST 10-16 20:57
PROVIDERS: Emergency Medicine Emergency Medical Services; Family Medicine; Obstetrics & Gynecology; Specialist; Surgery
PROC: 02HV33Z Insertion of Infusion Device into Superior Vena Cava, Percutaneous Approach (ICD-10-PCS; principal; 2017-10-13)
DX: E10.10 Type 1 diabetes mellitus with ketoacidosis without coma (principal); E87.6 Hypokalemia; D64.9 Anemia, unspecified; E83.42 Hypomagnesemia; E86.0 Dehydration; M54.5 Low back pain; G80.9 Cerebral palsy, unspecified; F90.9 Attention-deficit hyperactivity disorder, unspecified type; G43.909 Migraine, unspecified, not intractable, without status migrainosus; F41.9 Anxiety disorder, unspecified; Z79.4 Long term (current) use of insulin; Z86.73 Personal history of transient ischemic attack (TIA), and cerebral infarction without residual deficits; Z87.891 Personal history of nicotine dependence; Z91.19 Patient's noncompliance with other medical treatment and regimen
CPT/HCPCS: 36600; 71045; 80048; 80048 91; 80053; 81003; 82010; 82803; 82948; 83036; 83605; 83690; 83735; 84100; 85025; 85027; 87040; 87086; 87641; 93005; 99281; 99285; C1751; J1644; J1815; J2405; J2543; J2765; J3010; J3475; J3480; J7030; J7040; J7050; J7070; J7120; S0028

== ENCOUNTER 2017-12-01 12:51 | Inpatient (IN) | payer OTHER ==
[2017-12-01] VITALS (7 sets, daily range): BP systolic 92–116; BP diastolic 55–82
[~2017-12-01] VITALS: Ht 154.9 cm; Wt 56.0 kg
[2017-12-01 13:56] LABS: HEMATOCRIT 47.9 % (36.0-46.0); HEMOGLOBIN 16.2 G/DL (11.9-15.5); MCH 30.4 PG (29.0-34.0); MCHC 33.8 G/DL (30.0-36.0); MCV 89.9 FL (83-99); PLATELET COUNT 325 K/uL (156-360); RBC DIS.WIDTH-CV 12.6 % (11.8-14.6); RBC DIS.WIDTH-SD 41.1 % (39-53); RED BLOOD COUNT 5.33 M/uL (3.80-5.20); WHITE BLOOD COUNT 18.9 K/uL (4.1-10.2)
[2017-12-01 14:00] LABS: APPEARANCE CLOUDY ((CLEAR)); BILIRUBIN NEGATIVE; BLOOD SMALL; COLOR YELLOW ((YELLOW)); GLUCOSE (STRIP) >=500; KETONES 80; LEUKOCYTES LARGE; NITRITE NEGATIVE; PROTEIN (STRIP) 30; SPECIFIC GRAVITY 1.032 (1.000-1.030); UROBILINOGEN 0.2 MG/DL (0.2-1.0)
[2017-12-01 14:06] LABS: CHLORIDE 106 mEq/L (99-109); POTASSIUM 4.3 mEq/L (3.7-5.4); SODIUM 135 mEq/L (136-147)
[2017-12-01 14:10] LABS: BACTERIA 2+ /HPF; EPITHELIAL CELLS 1+ /HPF; MUCUS TRACE /LPF; RED BLOOD CELLS 20-30 /HPF (0-5); UCUL ADDED? YES; WHITE BLOOD CELLS 30-40 /HPF (0-5)
[2017-12-01 14:12] LABS: CREATININE 1.2 mg/dL (0.6-1.3); GFR ESTIMATE (CALCULATED) > 59 mL/min/
[2017-12-01 14:13] LABS: UREA NITROGEN (BUN) 14 mg/dL (9-23)
[2017-12-01 14:19] LABS: GLUCOSE 416 mg/dL (70-99)
[2017-12-01 14:20] LABS: QUANTITATIVE HCG < 4.0 MIU/ML
[2017-12-01 14:33] LABS: CARBON DIOXIDE (BICARBONATE) 8.1 MEQ/L (20-31)
[2017-12-01] MEDS ORDERED: NOVOLOG 10100 UNITS/ SC (15:28)
[2017-12-01] MEDS ORDERED: BASAGLAR K100 UNIT/1 SC (15:29)
[2017-12-01 17:13] LABS: CHLORIDE 115 mEq/L (99-109); POTASSIUM 3.8 mEq/L (3.7-5.4); SODIUM 138 mEq/L (136-147)
[2017-12-01 17:15] LABS: GLUCOSE 260 mg/dL (70-99)
[2017-12-01 17:18] LABS: PHOSPHORUS 2.7 mg/dL (2.5-4.9)
[2017-12-01 17:19] LABS: CREATININE 0.9 mg/dL (0.6-1.3); GFR ESTIMATE (CALCULATED) > 59 mL/min/; UREA NITROGEN (BUN) 12 mg/dL (9-23)
[2017-12-01 20:37] LABS: CHLORIDE 115 MEQ/L (99-109); CREATININE 0.5 MG/DL (0.6-1.3); GFR ESTIMATE (CALCULATED) > 59 mL/min/; GLUCOSE 172 mg/dL (70-99); PHOSPHORUS 1.9 mg/dL (2.5-4.9); POTASSIUM 3.4 MEQ/L (3.7-5.4); SODIUM 136 MEQ/L (136-147); UREA NITROGEN (BUN) 9 mg/dL (9-23)
[2017-12-01 20:40] LABS: CARBON DIOXIDE (BICARBONATE) < 10.0 MEQ/L (20-31)
[2017-12-02] VITALS (17 sets, daily range): BP systolic 98–112; BP diastolic 60–79
[2017-12-02 00:50] LABS: CHLORIDE 116 mEq/L (99-109); POTASSIUM 3.7 mEq/L (3.7-5.4); SODIUM 137 mEq/L (136-147)
[2017-12-02 00:52] LABS: GLUCOSE 312 mg/dL (70-99)
[2017-12-02 00:55] LABS: PHOSPHORUS 1.9 mg/dL (2.5-4.9)
[2017-12-02 00:56] LABS: CREATININE 0.8 mg/dL (0.6-1.3); GFR ESTIMATE (CALCULATED) > 59 mL/min/
[2017-12-02 00:57] LABS: UREA NITROGEN (BUN) 6 mg/dL (9-23)
[2017-12-02 04:34] LABS: CHLORIDE 115 mEq/L (99-109); SODIUM 138 mEq/L (136-147)
[2017-12-02 04:35] LABS: POTASSIUM 2.9 mEq/L (3.7-5.4)
[2017-12-02 04:36] LABS: GLUCOSE 182 mg/dL (70-99)
[2017-12-02 04:39] LABS: PHOSPHORUS 1.7 mg/dL (2.5-4.9)
[2017-12-02 04:40] LABS: CREATININE 0.6 mg/dL (0.6-1.3); GFR ESTIMATE (CALCULATED) > 59 mL/min/
[2017-12-02 04:41] LABS: UREA NITROGEN (BUN) 5 mg/dL (9-23)
[2017-12-02 08:24] LABS: CHLORIDE 110 MEQ/L (99-109); SODIUM 135 MEQ/L (136-147)
[2017-12-02 08:30] LABS: CREATININE 0.3 MG/DL (0.6-1.3); GFR ESTIMATE (CALCULATED) > 59 mL/min/; GLUCOSE 147 mg/dL (70-99); UREA NITROGEN (BUN) 4 mg/dL (9-23)
[2017-12-02 08:31] LABS: PHOSPHORUS 3.2 mg/dL (2.5-4.9); POTASSIUM 3.5 MEQ/L (3.7-5.4)
[2017-12-02 10:28] LABS: HEMOGLOBIN A1c (GLYCOHEMOGLOB) 12.7 % (Below 5.7)
[2017-12-02 12:09] LABS: CHLORIDE 112 mEq/L (99-109); POTASSIUM 3.4 mEq/L (3.7-5.4); SODIUM 135 mEq/L (136-147)
[2017-12-02 12:11] LABS: GLUCOSE 218 mg/dL (70-99)
[2017-12-02 12:15] LABS: CREATININE 0.5 mg/dL (0.6-1.3); GFR ESTIMATE (CALCULATED) > 59 mL/min/
[2017-12-02 12:16] LABS: PHOSPHORUS 2.5 mg/dL (2.5-4.9); UREA NITROGEN (BUN) 4 mg/dL (9-23)
[2017-12-03 03:23] VITALS: BP 101/70
[2017-12-03 06:30] LABS: BASOPHIL (%) 0.4 % (0-1); EOSINOPHIL (%) 2.5 % (0-5); EOSINOPHIL COUNT 0.2 K/uL (0-0.3); HEMATOCRIT 34.4 % (36.0-46.0); IMMATURE GRANULOCYTE (%) 0.6 % (0.0-0.7); LYMPHOCYTE (%) 33.1 % (15-42); LYMPHOCYTE COUNT 2.4 K/uL (1.0-2.8); MCHC 35.2 G/DL (30.0-36.0); MONOCYTE (%) 10.1 % (3-12); MONOCYTE COUNT 0.7 K/uL (0-0.8); NEUTROPHIL (%) 53.3 % (45-76); NEUTROPHIL COUNT 3.9 K/uL (1.8-6.4); RBC DIS.WIDTH-CV 12.6 % (11.8-14.6); RBC DIS.WIDTH-SD 38.9 % (39-53); WHITE BLOOD COUNT 7.3 K/uL (4.1-10.2)
[2017-12-03 06:31] LABS: HEMOGLOBIN 12.1 G/DL (11.9-15.5); MCV 85.4 FL (83-99); RED BLOOD COUNT 4.03 M/uL (3.80-5.20)
[2017-12-03 06:57] LABS: ALBUMIN 3.1 G/DL (3.2-4.8); ALKALINE PHOSPHATASE 63 IU/L (3-129); ALT (GPT) 7 IU/L (3-49); AST (GOT) 7 IU/L (2-34); CHLORIDE 105 MEQ/L (99-109); CREATININE 0.6 MG/DL (0.6-1.3); GFR ESTIMATE (CALCULATED) > 59 mL/min/; GLUCOSE 271 mg/dL (70-99); MAGNESIUM 1.6 mg/dl (1.3-2.7); PHOSPHORUS 2.8 mg/dL (2.5-4.9); POTASSIUM 3.6 MEQ/L (3.7-5.4); SODIUM 137 MEQ/L (136-147); TOTAL BILIRUBIN 0.3 MG/DL (0.0-1.0); TOTAL PROTEIN 5.3 G/DL (6.4-8.3); UREA NITROGEN (BUN) 8 mg/dL (9-23)
[2017-12-03 07:29] LABS: PLAT.SUFFICIENCY ADEQUATE; PLATELET COUNT 214 K/uL (156-360)
[2017-12-03 08:07] VITALS: BP 100/61
[2017-12-03 12:54] VITALS: BP 102/65
[2017-12-03 15:49] VITALS: BP 107/67
[2017-12-03 19:35] VITALS: BP 109/70
[2017-12-04 00:12] VITALS: BP 107/61
[2017-12-04 03:30] VITALS: BP 92/59
[2017-12-04 06:55] VITALS: BP 99/65
[2017-12-04] MEDS ORDERED: BASAGLAR K100 UNIT/1 SC (12:39)
[2017-12-04 15:14] VITALS: BP 96/56
== END 2017-12-04 20:50 | disposition home or self-care (01) | DRG 638 ==
LOC: EME 12:51 → EDOF 15:49 → 4WEST 15:49 → ENRESERV 15:57 → 4WEST 16:49 → ENRESERV 12-02 13:09 → 5SOUTH 12-02 15:23 → ENPENDDIS 12-04 14:16 → 5SOUTH 12-04 20:50
PROVIDERS: Emergency Medicine; Hospitalist; Internal Medicine
DX: E10.10 Type 1 diabetes mellitus with ketoacidosis without coma (principal); N39.0 Urinary tract infection, site not specified; G40.909 Epilepsy, unspecified, not intractable, without status epilepticus; F41.9 Anxiety disorder, unspecified; G43.909 Migraine, unspecified, not intractable, without status migrainosus; Z91.14 Patient's other noncompliance with medication regimen; Z79.4 Long term (current) use of insulin; F12.90 Cannabis use, unspecified, uncomplicated; F90.9 Attention-deficit hyperactivity disorder, unspecified type; Z83.3 Family history of diabetes mellitus
CPT/HCPCS: 80048; 80048 91; 80053; 81003; 82010; 82803; 82948; 83036; 83735; 84100; 84702; 85025; 85027; 87086; 87641; 99281; 99285; C1753; J0692; J0696; J1815; J2405; J3480; J7030; J7040; J7050

== ENCOUNTER 2017-12-12 11:29 | Inpatient (IN) | payer OTHER ==
[~2017-12-12] VITALS: Ht 154.9 cm; Wt 52.4 kg
[2017-12-12 12:26] LABS: CARBON DIOXIDE (BICARBONATE) 6.2 MEQ/L (20-31)
[2017-12-12 12:35] LABS: CHLORIDE 108 mEq/L (99-109); POTASSIUM 4.2 mEq/L (3.7-5.4); SODIUM 135 mEq/L (136-147)
[2017-12-12 12:37] LABS: GLUCOSE 363 mg/dL (70-99)
[2017-12-12 12:38] LABS: HEMATOCRIT 48.2 % (36.0-46.0); HEMOGLOBIN 15.6 G/DL (11.9-15.5); MCH 29.5 PG (29.0-34.0); MCHC 32.4 G/DL (30.0-36.0); MCV 91.1 FL (83-99); PLATELET COUNT 492 K/uL (156-360); RBC DIS.WIDTH-CV 12.5 % (11.8-14.6); RBC DIS.WIDTH-SD 41.1 % (39-53); RED BLOOD COUNT 5.29 M/uL (3.80-5.20); WHITE BLOOD COUNT 12.7 K/uL (4.1-10.2)
[2017-12-12 12:41] LABS: CREATININE 1.3 mg/dL (0.6-1.3); GFR ESTIMATE (CALCULATED) 54 mL/min/
[2017-12-12 12:42] LABS: UREA NITROGEN (BUN) 18 mg/dL (9-23)
[2017-12-12 13:34] LABS: QUANTITATIVE HCG < 4.0 MIU/ML
[2017-12-12] MEDS ORDERED: BASAGLAR K100 UNIT/1 SC (14:23)
[2017-12-12 15:01] LABS: HEMOGLOBIN A1c (GLYCOHEMOGLOB) 12.8 % (Below 5.7)
[2017-12-12 17:19] LABS: CHLORIDE 114 mEq/L (99-109); POTASSIUM 4.1 mEq/L (3.7-5.4)
[2017-12-12 17:20] LABS: SODIUM 135 mEq/L (136-147)
[2017-12-12 17:21] LABS: GLUCOSE 225 mg/dL (70-99)
[2017-12-12 17:25] LABS: GFR ESTIMATE (CALCULATED) > 59 mL/min/; PHOSPHORUS 2.4 mg/dL (2.5-4.9)
[2017-12-12 17:26] LABS: UREA NITROGEN (BUN) 16 mg/dL (9-23)
[2017-12-12 20:07] VITALS: BP 105/81
[2017-12-12 20:11] VITALS: BP 105/81
[2017-12-12 20:31] VITALS: BP 109/75
[2017-12-12 21:01] VITALS: BP 107/75
[2017-12-12 21:19] LABS: CHLORIDE 110 MEQ/L (99-109); CREATININE 0.7 MG/DL (0.6-1.3); GFR ESTIMATE (CALCULATED) > 59 mL/min/; GLUCOSE 252 mg/dL (70-99); PHOSPHORUS 2.4 mg/dL (2.5-4.9); POTASSIUM 3.8 MEQ/L (3.7-5.4); SODIUM 130 MEQ/L (136-147); UREA NITROGEN (BUN) 13 mg/dL (9-23)
[2017-12-12 22:01] VITALS: BP 113/76
[2017-12-12 23:01] VITALS: BP 113/71
[2017-12-13] VITALS (13 sets, daily range): BP systolic 99–117; BP diastolic 57–86
[2017-12-13 00:43] LABS: CHLORIDE 117 mEq/L (99-109); POTASSIUM 3.3 mEq/L (3.7-5.4); SODIUM 134 mEq/L (136-147)
[2017-12-13 00:45] LABS: GLUCOSE 239 mg/dL (70-99)
[2017-12-13 00:49] LABS: GFR ESTIMATE (CALCULATED) > 59 mL/min/
[2017-12-13 00:50] LABS: UREA NITROGEN (BUN) 11 mg/dL (9-23)
[2017-12-13 00:57] LABS: PHOSPHORUS 1.5 mg/dL (2.5-4.9)
[2017-12-13 06:20] LABS: CHLORIDE 115 MEQ/L (99-109); CREATININE 0.6 MG/DL (0.6-1.3); GFR ESTIMATE (CALCULATED) > 59 mL/min/; GLUCOSE 171 mg/dL (70-99); POTASSIUM 3.4 MEQ/L (3.7-5.4); SODIUM 136 MEQ/L (136-147); UREA NITROGEN (BUN) 12 mg/dL (9-23)
[2017-12-13 06:36] LABS: PHOSPHORUS 1.5 mg/dL (2.5-4.9)
[2017-12-13 09:05] LABS: CHLORIDE 115 MEQ/L (99-109); CREATININE 0.4 MG/DL (0.6-1.3); GFR ESTIMATE (CALCULATED) > 59 mL/min/; POTASSIUM 2.9 MEQ/L (3.7-5.4); SODIUM 137 MEQ/L (136-147); UREA NITROGEN (BUN) 11 mg/dL (9-23)
[2017-12-13 09:06] LABS: GLUCOSE 118 mg/dL (70-99)
[2017-12-13 09:07] LABS: PHOSPHORUS 2.2 mg/dL (2.5-4.9)
[2017-12-14 01:00] VITALS: BP 102/68
[2017-12-14 04:15] VITALS: BP 99/64
[2017-12-14 08:04] VITALS: BP 95/65
[2017-12-14 09:54] LABS: HEMATOCRIT 33.5 % (36.0-46.0); HEMOGLOBIN 11.7 G/DL (11.9-15.5); MCH 29.8 PG (29.0-34.0); MCHC 34.9 G/DL (30.0-36.0); MCV 85.2 FL (83-99); RBC DIS.WIDTH-CV 12.7 % (11.8-14.6); RBC DIS.WIDTH-SD 39.4 % (39-53); RED BLOOD COUNT 3.93 M/uL (3.80-5.20); WHITE BLOOD COUNT 7.8 K/uL (4.1-10.2)
[2017-12-14 10:07] LABS: PLAT.SUFFICIENCY ADEQUATE
[2017-12-14 10:08] LABS: PLATELET COUNT 286 K/uL (156-360)
[2017-12-14 10:13] LABS: CHLORIDE 110 MEQ/L (99-109); CREATININE 0.5 MG/DL (0.6-1.3); GFR ESTIMATE (CALCULATED) > 59 mL/min/; SODIUM 141 MEQ/L (136-147); UREA NITROGEN (BUN) 9 mg/dL (9-23)
[2017-12-14 10:14] LABS: GLUCOSE 210 mg/dL (70-99); POTASSIUM 3.5 MEQ/L (3.7-5.4)
== END 2017-12-14 14:10 | disposition home or self-care (01) | DRG 639 ==
LOC: EME 11:29 → EDOF 16:59 → 4WEST 16:59 → ENRESERV 18:24 → 4WEST 20:00 → ENRESERV 12-13 00:48 → 4WEST 12-13 09:44 → CANRESERV 12-13 09:51 → ENRESERV 12-13 09:51 → 2EAST 12-13 11:22
PROVIDERS: Hospitalist; Internal Medicine; Internal Medicine Critical Care Medicine; Nurse Practitioner Family
DX: E10.10 Type 1 diabetes mellitus with ketoacidosis without coma (principal); R56.9 Unspecified convulsions; E86.0 Dehydration; G80.9 Cerebral palsy, unspecified; F41.9 Anxiety disorder, unspecified; G43.909 Migraine, unspecified, not intractable, without status migrainosus; F12.90 Cannabis use, unspecified, uncomplicated; Z79.4 Long term (current) use of insulin; Z86.73 Personal history of transient ischemic attack (TIA), and cerebral infarction without residual deficits; Z87.891 Personal history of nicotine dependence
CPT/HCPCS: 71046; 80048; 80048 91; 82010; 82803; 82948; 83036; 84100; 84702; 85027; 87641; 99281; 99285; J1644; J1815; J2405; J7030; J7050